=== PATIENT | female | born 1960 | race Caucasian/White ===

== ENCOUNTER → 2017-08-18 | Outpatient (CLI) | payer OTHER ==
[~2017-08-18] MED LIST: ALPR.25 PO; ASPI325 PO; CEPH500 PO; CHOL10002; CIPR500 PO; CITA20 PO; CRANBERRY; CYCL10 PO; DEPRESSION MED; Flomax0.4 MG PO; GABA100 PO; GLIP5 PO; GLYB2.5 PO; HYDACE5325 PO; HYDMOR2 PO; HYDR1TAB94 PO; INSULANPEN SC; Iron Supplemen325 MG; KRILL OIL500 MG PO; LEVO750 PO; LISI20 PO; LISI5 PO; METF500 PO; METF500C PO; NITR100CA PO; Norco 5-325 Ta1 EACH PO; OMEGA-3; OMEP20ER PO; ROPI1 PO; RXHYD5325 PO; RXHYDMOR2 PO; RXPROM25 PO; SITA100T2 PO; [UNRECOGNIZED DRUG - OTHER] SC
[2017-08-18 14:12] LABS: Protein, Urine Quantitative 12.4 mg/dL (0.0-11.9)
[2017-08-18 14:14] LABS: Microalbumin, Urine Quant. 25.7 mg/L (0.000-20.000)
== END ==
LOC: LAB SHORT 08:26
PROVIDERS: Internal Medicine Nephrology
DX: N18.2 Chronic kidney disease, stage 2 (mild) (principal); D63.1 Anemia in chronic kidney disease
CPT/HCPCS: 81050; 82043; 84156

== ENCOUNTER 2017-11-25 22:27 | Emergency (ER) | payer OTHER ==
[~2017-11-25] VITALS: Ht 160 cm; Wt 117.9 kg
[~2017-11-25 22:27] MED LIST changes: -NITR100CA PO
[2017-11-25 23:10] LABS: BASOPHILS ABSOLUTE AUTO 0.06 K/mm3 (0.00-0.23); BASOPHILS PERCENT AUTO 1 % (0-2); EOSINOPHILS ABSOLUTE AUTO 0.14 K/mm3 (0.00-0.68); EOSINOPHILS PERCENT AUTO 1 % (0-6); Hematocrit 42.9 % (33.0-51.0); Hemoglobin 14.5 g/dL (11.5-16.0); IMMATURE GRAN ABSOLUTE AUTO 0.05 K/mm3 (0.00-0.10); IMMATURE GRAN PERCENT AUTO 1 % (0-1); LYMPHOCYTES ABSOLUTE AUTO 2.39 K/mm3 (0.84-5.20); LYMPHOCYTES PERCENT AUTO 24 % (21-46); MONOCYTES ABSOLUTE AUTO 0.63 K/mm3 (0.16-1.47); MONOCYTES PERCENT AUTO 6 % (4-13); Mean Corpuscular HGB 30.3 pg (26.0-34.0); Mean Corpuscular HGB Conc 33.8 g/dL (31.5-36.5); Mean Corpuscular Volume 90 fL (80-100); Mean Platelet Volume 10.2 fL (9.1-12.4); NEUTROPHILS ABSOLUTE AUTO 6.64 K/mm3 (1.96-9.15); NEUTROPHILS PERCENT AUTO 67 % (41-73); Platelet Count 226 K/mm3 (150-400); RDW Coefficient Variation 12.5 % (11.7-14.2); RDW Standard Deviation 40.9 fL (35.1-46.3); Red Blood Cell Count 4.79 M/mm3 (3.80-5.20); White Blood Cell Count 9.91 K/mm3 (4.00-11.30)
[2017-11-25 23:24] LABS: International Normalized Ratio 1.04; Prothrombin Time Results 10.8 Sec (9.7-11.5)
[2017-11-25 23:28] LABS: Alanine Aminotransfer (ALT/SGP 37 U/L (12-78); Albumin, Blood 3.4 g/dL (3.4-5.0); Albumin/Globulin Ratio 0.9 (0.8-1.8); Alk Phos 85 U/L (50-136); Anion Gap 9 mmol/L (6-16); Aspartate Aminotrans (AST/SGOT 37 U/L (12-37); Bilirubin, Total 0.4 mg/dL (0.1-1.0); Blood Urea Nitrogen 14 mg/dL (8-24); Bun/Creatinine Ratio 23.2 (12.0-20.0); CO2, Blood 24 mmol/L (21-32); Calcium, Blood 8.6 mg/dL (8.5-10.1); Chloride, Blood 106 mmol/L (98-108); Globulin, Blood 3.8 g/dL (2.2-4.0); Glomerular Filtration Rate >60 (60-); Glucose, Blood 260 mg/dL (70-99); Potassium, Blood 3.7 mmol/L (3.5-5.5); Sodium, Blood 139 mmol/L (136-145); Total Protein, Blood 7.2 g/dL (6.4-8.2)
[2017-11-25 23:48] LABS: Source, Urine Clean Catch
[2017-11-25 23:55] LABS: Bilirubin, Urine Neg (Neg); Blood, Urine 1+ (Neg); Glucose Qualitative, Urine 4+ (Neg); Ketones, Urine Neg (Neg); Leukocyte Esterase, Urine 2+ (Neg); Nitrite, Urine Pos (Neg); Protein, Urine 3+ (Neg); Specific Gravity, Urine 1.025 (1.003-1.022); Urobilinogen, Urine NORM (Normal)
[2017-11-26 00:06] LABS: Appearance, Urine Hazy (Clear); Color, Urine Yellow (P-Yellow)
[2017-11-26 00:07] LABS: Bacteria Many /hpf; Calcium Oxalate Crystals Mod /hpf; Squamous Epithelial Cells Few /hpf (Few); White Blood Cells, Urine 50-100 /hpf (0-5)
[2017-11-26] MEDS ORDERED: NITR100CA PO (00:30)
== END 2017-11-26 00:49 | disposition home or self-care (01) ==
LOC: ER 22:27
PROVIDERS: Emergency Medicine
DX: N39.0 Urinary tract infection, site not specified (principal); Z88.5 Allergy status to narcotic agent; Z88.2 Allergy status to sulfonamides; Z87.442 Personal history of urinary calculi; Z88.1 Allergy status to other antibiotic agents; Z88.8 Allergy status to other drugs, medicaments and biological substances; Z88.0 Allergy status to penicillin; Z79.899 Other long term (current) drug therapy; Z79.4 Long term (current) use of insulin; E11.9 Type 2 diabetes mellitus without complications; I10 Essential (primary) hypertension
CPT/HCPCS: 36415; 71046; 80053; 81001; 82947; 85025; 85610; 85730; 87077; 87086; 87186; 93005; 93010; 99283

== ENCOUNTER → 2018-09-29 | Outpatient (CLI) | payer OTHER ==
[~2018-09-29] MED LIST changes: +NITR100CA PO
[2018-10-01 15:07] LABS: HPV 16 Negative (Negative); HPV 18 Negative (Negative); HPV OTHER HR TYPES Negative (Negative)
== END | disposition home or self-care (01) ==
LOC: LAB 18:37 → LAB SHORT 18:37
PROVIDERS: Nurse Practitioner Family
DX: Z00.00 Encounter for general adult medical examination without abnormal findings (principal)
CPT/HCPCS: 87624; G0123

== ENCOUNTER 2019-03-26 14:31 | Emergency (ER) | payer OTHER ==
[~2019-03-26] VITALS: Ht 160 cm; Wt 129.3 kg
[2019-03-26] MEDS ORDERED: Humalog Mi100 UNIT/4 (15:07)
[2019-03-26] MEDS ORDERED: BASAGLAR K100 UNIT/1 SC (15:07)
[2019-03-26 15:22] LABS: BASOPHILS ABSOLUTE AUTO 0.04 K/mm3 (0.00-0.23); BASOPHILS PERCENT AUTO 1 % (0-2); EOSINOPHILS ABSOLUTE AUTO 0.25 K/mm3 (0.00-0.68); EOSINOPHILS PERCENT AUTO 3 % (0-6); Hematocrit 41.2 % (33.0-51.0); Hemoglobin 13.5 g/dL (11.5-16.0); IMMATURE GRAN ABSOLUTE AUTO 0.03 K/mm3 (0.00-0.10); IMMATURE GRAN PERCENT AUTO 0 % (0-1); LYMPHOCYTES ABSOLUTE AUTO 1.99 K/mm3 (0.84-5.20); LYMPHOCYTES PERCENT AUTO 24 % (21-46); MONOCYTES ABSOLUTE AUTO 0.65 K/mm3 (0.16-1.47); MONOCYTES PERCENT AUTO 8 % (4-13); Mean Corpuscular HGB 29.5 pg (26.0-34.0); Mean Corpuscular HGB Conc 32.8 g/dL (31.5-36.5); Mean Corpuscular Volume 90 fL (80-100); Mean Platelet Volume 10.6 fL (9.1-12.4); NEUTROPHILS ABSOLUTE AUTO 5.47 K/mm3 (1.96-9.15); NEUTROPHILS PERCENT AUTO 65 % (41-73); Platelet Count 204 K/mm3 (150-400); RDW Coefficient Variation 12.6 % (11.7-14.2); RDW Standard Deviation 41.5 fL (35.1-46.3); Red Blood Cell Count 4.57 M/mm3 (3.80-5.20); White Blood Cell Count 8.43 K/mm3 (4.00-11.30)
[2019-03-26 15:23] LABS: Bicarbonate Venous 23.7 mmol/L (24.0-30.0); PO2 Venous 138 mmHg (38-42)
[2019-03-26 15:51] LABS: Alanine Aminotransfer (ALT/SGP 38 U/L (12-78); Albumin, Blood 3.4 g/dL (3.4-5.0); Albumin/Globulin Ratio 0.9 (0.8-1.8); Alk Phos 166 U/L (50-136); Anion Gap 8 mmol/L (6-16); Aspartate Aminotrans (AST/SGOT 28 U/L (12-37); Bilirubin, Total 0.5 mg/dL (0.1-1.0); Blood Urea Nitrogen 23 mg/dL (8-24); Bun/Creatinine Ratio 33.8 (12.0-20.0); CO2, Blood 24 mmol/L (21-32); Calcium, Blood 8.4 mg/dL (8.5-10.1); Chloride, Blood 106 mmol/L (98-108); Creatinine, Blood 0.68 mg/dL (0.40-1.00); Globulin, Blood 3.6 g/dL (2.2-4.0); Glomerular Filtration Rate >60 (60-); Glucose, Blood 374 mg/dL (70-99); Potassium, Blood 4.3 mmol/L (3.5-5.5); Sodium, Blood 138 mmol/L (136-145); Troponin I <0.015 ng/mL (0.000-0.040)
[2019-03-26 15:58] LABS: Beta-hydroxybutyrate 1.8 mg/dL (0.2-2.8)
[2019-03-26 16:25] LABS: Source, Urine Clean Catch
[2019-03-26 16:33] LABS: Bilirubin, Urine Neg (Neg); Blood, Urine 1+ (Neg); Glucose Qualitative, Urine 4+ (Neg); Ketones, Urine Neg (Neg); Leukocyte Esterase, Urine Neg (Neg); Nitrite, Urine Neg (Neg); Protein, Urine Neg (Neg); Specific Gravity, Urine 1.015 (1.003-1.022); Urobilinogen, Urine NORM (Normal)
[2019-03-26 16:45] LABS: Appearance, Urine Clear (Clear); Color, Urine Yellow (P-Yellow)
[2019-03-26 16:47] LABS: Bacteria Few /hpf; Squamous Epithelial Cells Few /hpf (Few); White Blood Cells, Urine 0-2 /hpf (0-5)
[2019-03-26] MEDS ORDERED: Norco 5-325 Ta1 EACH PO (17:51)
== END 2019-03-26 19:06 | disposition home or self-care (01) ==
LOC: ER 14:31
PROVIDERS: Physician Assistant
DX: S39.012A Strain of muscle, fascia and tendon of lower back, initial encounter (principal); N20.0 Calculus of kidney; I10 Essential (primary) hypertension; E11.65 Type 2 diabetes mellitus with hyperglycemia; Z87.442 Personal history of urinary calculi; Z88.5 Allergy status to narcotic agent; Z88.1 Allergy status to other antibiotic agents; Z79.899 Other long term (current) drug therapy; Z79.4 Long term (current) use of insulin; X58.XXXA Exposure to other specified factors, initial encounter
CPT/HCPCS: 36415; 71046; 74176; 80053; 81001; 82010; 82803; 82947; 83880; 84484; 85025; 93005; 93010; 96361; 96374; 96375; 99284-25; J1885; J3010; J7030

== ENCOUNTER 2019-09-14 16:16 | Emergency (ER) | payer OTHER ==
[~2019-09-14] VITALS: Ht 160 cm; Wt 127.0 kg
[~2019-09-14 16:16] MED LIST changes: +BASAGLAR K100 UNIT/1 SC; +Humalog Mi100 UNIT/4
[2019-09-14 18:35] LABS: Source, Urine Catheter
[2019-09-14 18:41] LABS: Bilirubin, Urine Neg (Neg); Blood, Urine 1+ (Neg); Glucose Qualitative, Urine 4+ (Neg); Ketones, Urine Neg (Neg); Leukocyte Esterase, Urine Neg (Neg); Nitrite, Urine Neg (Neg); Protein, Urine Neg (Neg); Urobilinogen, Urine NORM (Normal)
[2019-09-14 18:44] LABS: BASOPHILS ABSOLUTE AUTO 0.07 K/mm3 (0.00-0.23); BASOPHILS PERCENT AUTO 1 % (0-2); EOSINOPHILS ABSOLUTE AUTO 0.21 K/mm3 (0.00-0.68); EOSINOPHILS PERCENT AUTO 2 % (0-6); Hematocrit 38.7 % (33.0-51.0); Hemoglobin 12.8 g/dL (11.5-16.0); IMMATURE GRAN ABSOLUTE AUTO 0.11 K/mm3 (0.00-0.10); IMMATURE GRAN PERCENT AUTO 1 % (0-1); LYMPHOCYTES ABSOLUTE AUTO 2.59 K/mm3 (0.84-5.20); LYMPHOCYTES PERCENT AUTO 22 % (21-46); MONOCYTES ABSOLUTE AUTO 0.77 K/mm3 (0.16-1.47); MONOCYTES PERCENT AUTO 6 % (4-13); Mean Corpuscular HGB 29.8 pg (26.0-34.0); Mean Corpuscular HGB Conc 33.1 g/dL (31.5-36.5); Mean Corpuscular Volume 90 fL (80-100); Mean Platelet Volume 10.3 fL (9.1-12.4); NEUTROPHILS PERCENT AUTO 69 % (41-73); Platelet Count 244 K/mm3 (150-400); RDW Coefficient Variation 12.9 % (11.7-14.2); RDW Standard Deviation 42.5 fL (35.1-46.3); Red Blood Cell Count 4.29 M/mm3 (3.80-5.20); White Blood Cell Count 11.95 K/mm3 (4.00-11.30)
[2019-09-14 18:47] LABS: Color, Urine Yellow (P-Yellow)
[2019-09-14 18:48] LABS: Appearance, Urine Clear (Clear); Bacteria Rare /hpf; Squamous Epithelial Cells Few /hpf (Few); White Blood Cells, Urine 0-2 /hpf (0-5)
[2019-09-14] MEDS ORDERED: ESCI10 (18:49)
[2019-09-14] MEDS ORDERED: AMLODIPINE-OLM1 EAC2 (18:49)
[2019-09-14] MEDS ORDERED: KRILL OIL500 MG (18:49)
[2019-09-14] MEDS ORDERED: LISI5 PO (18:49)
[2019-09-14 19:20] LABS: Alanine Aminotransfer (ALT/SGP 29 U/L (12-78); Albumin, Blood 3.1 g/dL (3.4-5.0); Albumin/Globulin Ratio 0.8 (0.8-1.8); Alk Phos 106 U/L (50-136); Anion Gap 6 mmol/L (6-16); Aspartate Aminotrans (AST/SGOT 22 U/L (12-37); Bilirubin, Total 0.4 mg/dL (0.1-1.0); Blood Urea Nitrogen 19 mg/dL (8-24); CO2, Blood 25 mmol/L (21-32); Calcium, Blood 8.8 mg/dL (8.5-10.1); Chloride, Blood 106 mmol/L (98-108); Creatinine, Blood 0.61 mg/dL (0.40-1.00); Glomerular Filtration Rate >60 (60-); Glucose, Blood 277 mg/dL (70-99); Potassium, Blood 3.9 mmol/L (3.5-5.5); Sodium, Blood 137 mmol/L (136-145); Total Protein, Blood 7.1 g/dL (6.4-8.2)
[2019-09-14] MEDS ORDERED: Ultram50 MG PO (19:38)
== END 2019-09-14 20:55 | disposition home or self-care (01) ==
LOC: ER 16:16
PROVIDERS: Emergency Medicine
DX: M54.9 Dorsalgia, unspecified (principal); E11.9 Type 2 diabetes mellitus without complications; K21.9 Gastro-esophageal reflux disease without esophagitis; I10 Essential (primary) hypertension; F32.9 Major depressive disorder, single episode, unspecified; E78.5 Hyperlipidemia, unspecified
CPT/HCPCS: 36415; 71046; 80053; 81001; 85025; 96374; 99283-25; J1170; P9612

== ENCOUNTER 2019-09-17 16:20 | Emergency (ER) | payer OTHER ==
[~2019-09-17] VITALS: Ht 160 cm; Wt 127.0 kg
[~2019-09-17 16:20] MED LIST changes: +AMLODIPINE-OLM1 EAC2; +ESCI10; +KRILL OIL500 MG; +Ultram50 MG PO
[2019-09-17] MEDS ORDERED: ATOR20 PO (16:59)
[2019-09-17 17:22] LABS: BASOPHILS ABSOLUTE AUTO 0.05 K/mm3 (0.00-0.23); BASOPHILS PERCENT AUTO 1 % (0-2); EOSINOPHILS PERCENT AUTO 2 % (0-6); Hematocrit 41.7 % (33.0-51.0); Hemoglobin 13.7 g/dL (11.5-16.0); IMMATURE GRAN ABSOLUTE AUTO 0.04 K/mm3 (0.00-0.10); IMMATURE GRAN PERCENT AUTO 0 % (0-1); LYMPHOCYTES ABSOLUTE AUTO 2.41 K/mm3 (0.84-5.20); LYMPHOCYTES PERCENT AUTO 25 % (21-46); MONOCYTES PERCENT AUTO 6 % (4-13); Mean Corpuscular HGB 29.9 pg (26.0-34.0); Mean Corpuscular HGB Conc 32.9 g/dL (31.5-36.5); Mean Corpuscular Volume 91 fL (80-100); Mean Platelet Volume 10.1 fL (9.1-12.4); NEUTROPHILS ABSOLUTE AUTO 6.23 K/mm3 (1.96-9.15); NEUTROPHILS PERCENT AUTO 65 % (41-73); Platelet Count 242 K/mm3 (150-400); RDW Coefficient Variation 12.8 % (11.7-14.2); RDW Standard Deviation 42.6 fL (35.1-46.3); Red Blood Cell Count 4.58 M/mm3 (3.80-5.20); White Blood Cell Count 9.53 K/mm3 (4.00-11.30)
[2019-09-17 17:49] LABS: Alanine Aminotransfer (ALT/SGP 37 U/L (12-78); Albumin, Blood 3.2 g/dL (3.4-5.0); Albumin/Globulin Ratio 0.8 (0.8-1.8); Alk Phos 108 U/L (50-136); Anion Gap 5 mmol/L (6-16); Aspartate Aminotrans (AST/SGOT 26 U/L (12-37); Bilirubin, Total 0.4 mg/dL (0.1-1.0); Blood Urea Nitrogen 15 mg/dL (8-24); Bun/Creatinine Ratio 26.9 (12.0-20.0); CO2, Blood 26 mmol/L (21-32); Calcium, Blood 8.9 mg/dL (8.5-10.1); Chloride, Blood 108 mmol/L (98-108); Creatinine, Blood 0.56 mg/dL (0.40-1.00); Globulin, Blood 3.9 g/dL (2.2-4.0); Glomerular Filtration Rate >60 (60-); Glucose, Blood 252 mg/dL (70-99); Potassium, Blood 3.9 mmol/L (3.5-5.5); Sodium, Blood 139 mmol/L (136-145); Total Protein, Blood 7.1 g/dL (6.4-8.2)
[2019-09-17 18:16] LABS: Source, Urine Clean Catch
[2019-09-17 18:19] LABS: Bilirubin, Urine Neg (Neg); Blood, Urine 1+ (Neg); Glucose Qualitative, Urine 3+ (Neg); Ketones, Urine Neg (Neg); Leukocyte Esterase, Urine Neg (Neg); Nitrite, Urine Neg (Neg); Protein, Urine Neg (Neg); Specific Gravity, Urine 1.025 (1.003-1.022); Urobilinogen, Urine NORM (Normal)
[2019-09-17 18:33] LABS: Appearance, Urine Hazy (Clear); Color, Urine Yellow (P-Yellow)
[2019-09-17 18:34] LABS: Bacteria Many /hpf; Squamous Epithelial Cells Many /hpf (Few); White Blood Cells, Urine 0-2 /hpf (0-5)
== END 2019-09-17 21:17 | disposition home or self-care (01) ==
LOC: ER 16:20
PROVIDERS: Physician Assistant
DX: R07.89 Other chest pain (principal); R10.9 Unspecified abdominal pain; R10.816 Epigastric abdominal tenderness; R74.8 Abnormal levels of other serum enzymes; E11.9 Type 2 diabetes mellitus without complications; I10 Essential (primary) hypertension; F32.9 Major depressive disorder, single episode, unspecified; K21.9 Gastro-esophageal reflux disease without esophagitis; E78.5 Hyperlipidemia, unspecified; G25.81 Restless legs syndrome; Z79.4 Long term (current) use of insulin; Z79.899 Other long term (current) drug therapy; Z88.5 Allergy status to narcotic agent; Z88.0 Allergy status to penicillin; Z88.2 Allergy status to sulfonamides
CPT/HCPCS: 36415; 74176; 80053; 81001; 83690; 84484; 85025; 87086; 93005; 93010; 99284-25; A9270; J1170; J2405

== ENCOUNTER 2020-04-26 12:10 | Inpatient (IN) | payer OTHER ==
[~2020-04-26] VITALS: Ht 160 cm; Wt 127.0 kg
[~2020-04-26 12:10] MED LIST changes: +ATOR20 PO
[2020-04-26] MEDS ORDERED: AMLODIPINE BESYL5 MG PO (12:34)
[2020-04-26] MEDS ORDERED: Acarbose25 MG PO (12:34)
[2020-04-26] MEDS ORDERED: ATOR40TA PO (12:35)
[2020-04-26] MEDS ORDERED: HUMALOG KW100 UNIT/1 SC ×2 (12:35→20:47)
[2020-04-26] MEDS ORDERED: ROPINIROLE HCL1 MG PO (12:35)
[2020-04-26] MEDS ORDERED: NEURONTIN300 MG PO (12:36)
[2020-04-26] MEDS ORDERED: ESCI20 PO (12:36)
[2020-04-26] MEDS ORDERED: LISI5 PO (12:36)
[2020-04-26 12:44] LABS: BASOPHILS ABSOLUTE AUTO 0.05 K/mm3 (0.00-0.23); BASOPHILS PERCENT AUTO 1 % (0-2); EOSINOPHILS ABSOLUTE AUTO 0.18 K/mm3 (0.00-0.68); EOSINOPHILS PERCENT AUTO 2 % (0-6); Hemoglobin 13.4 g/dL (11.5-16.0); IMMATURE GRAN ABSOLUTE AUTO 0.05 K/mm3 (0.00-0.10); IMMATURE GRAN PERCENT AUTO 1 % (0-1); LYMPHOCYTES ABSOLUTE AUTO 2.24 K/mm3 (0.84-5.20); LYMPHOCYTES PERCENT AUTO 21 % (21-46); MONOCYTES ABSOLUTE AUTO 0.85 K/mm3 (0.16-1.47); MONOCYTES PERCENT AUTO 8 % (4-13); Mean Corpuscular HGB 28.8 pg (26.0-34.0); Mean Corpuscular HGB Conc 31.9 g/dL (31.5-36.5); Mean Corpuscular Volume 90 fL (80-100); Mean Platelet Volume 10.6 fL (9.1-12.4); NEUTROPHILS PERCENT AUTO 69 % (41-73); Platelet Count 231 K/mm3 (150-400); RDW Standard Deviation 42.9 fL (35.1-46.3); Red Blood Cell Count 4.65 M/mm3 (3.80-5.20); White Blood Cell Count 10.87 K/mm3 (4.00-11.30)
[2020-04-26 12:57] LABS: International Normalized Ratio 0.97; Prothrombin Time Results 10.4 Sec (9.7-11.5)
[2020-04-26 12:59] LABS: Alanine Aminotransfer (ALT/SGP 33 U/L (12-78); Albumin, Blood 3.3 g/dL (3.4-5.0); Albumin/Globulin Ratio 0.9 (0.8-1.8); Alk Phos 90 U/L (50-136); Anion Gap 5 mmol/L (6-16); Aspartate Aminotrans (AST/SGOT 29 U/L (12-37); Bilirubin, Total 0.5 mg/dL (0.1-1.0); Blood Urea Nitrogen 16 mg/dL (8-24); Bun/Creatinine Ratio 28.4 (12.0-20.0); CO2, Blood 26 mmol/L (21-32); Calcium, Blood 8.8 mg/dL (8.5-10.1); Chloride, Blood 106 mmol/L (98-108); Creatinine, Blood 0.56 mg/dL (0.40-1.00); Globulin, Blood 3.8 g/dL (2.2-4.0); Glomerular Filtration Rate >60 (60-); Glucose, Blood 310 mg/dL (70-99); Potassium, Blood 4.2 mmol/L (3.5-5.5); Sodium, Blood 137 mmol/L (136-145); Total Protein, Blood 7.1 g/dL (6.4-8.2); Troponin I <0.015 ng/mL (0.000-0.040)
--- NOTE | 2020-04-26 16:15 | NUR ---
Echocardiogram completed.
[2020-04-26] MEDS ORDERED: ACET325 PO (20:44)
[2020-04-26] MEDS ORDERED: FERSU300 PO (20:45)
--- NOTE | 2020-04-26 22:27 | NUR ---
ASSUMED CARE OF PT @ 1900. PT ADMITTED TO ICU FOR POST PCI CARE. RIGHT RADIAL SITE ACCESS c TR BAND IN PLACE, ALL AIR REMOVED BY DAY SHIFT RN. NO BLEEDING NOTED TO SITE AT THIS TIME. SMALL HEMATOMA PROXIMAL TO TR BAND, AREA MARKED c MARKER TO ASSESS CHANGES. PRESSURE HELD ON SITE FOR 5 MINUTES WITH DECREASE IN HEMATOMA SIZE, AREA SOFT TO PALPATION. TR BAND REMOVED @ 2215, SITE CLEAN, NO BLEEDING FROM INSERTION SITE, CLEAR OP SITE DRESSING APPLIED. ARMBAND REAPPLIED. REINFORCED THE NEED FOR PT TO NOT USE THE RIGHT ARM/ HAND. NO C/O CP OR SOB AT THIS TIME. NO OTHER COMPLAINTS FROM PT. HOME MEDS CONFIRMED WITH DAUGHTER. WILL CONTIUE TO MONITOR RADIAL ACCESS SITE.
--- NOTE | 2020-04-27 00:22 | NUR ---
PTS O2 SATS DECREASED TO LOW 80'S WHILE SLEEPING. PT DENIES WEARING OXYGEN AT HOME OR HAVING SLEEP APNEA. PLACED ON 2LPM O2 VIA NC.
--- NOTE | 2020-04-27 05:52 | NUR ---
SHIFT SUMMARY PT REMAINED W/O CP OR SOB T/O THE MORNING. RADIAL ACCESS SITE C/D/I, HEMATOMA DECREASED IN SIZE, SOFT TO TOUCH. NO COMPLAINTS OR CONCERNS AT THIS TIME. UP WITH STANDBY ASSIST TO THE BATHROOM. TURNING/ MOVING SELF IN BED. VSS. PLACED ON 2LPM O2 DUE TO SPO2 DECREASING TO MID 80'S WHILE SLEEPING. SNORING NOTED. REPORT TO ONCOMING NURSE.
[2020-04-27 07:59] LABS: BASOPHILS ABSOLUTE AUTO 0.05 K/mm3 (0.00-0.23); BASOPHILS PERCENT AUTO 1 % (0-2); EOSINOPHILS ABSOLUTE AUTO 0.22 K/mm3 (0.00-0.68); EOSINOPHILS PERCENT AUTO 2 % (0-6); Hematocrit 38.5 % (33.0-51.0); Hemoglobin 12.1 g/dL (11.5-16.0); IMMATURE GRAN ABSOLUTE AUTO 0.04 K/mm3 (0.00-0.10); IMMATURE GRAN PERCENT AUTO 0 % (0-1); LYMPHOCYTES ABSOLUTE AUTO 1.71 K/mm3 (0.84-5.20); LYMPHOCYTES PERCENT AUTO 17 % (21-46); MONOCYTES ABSOLUTE AUTO 0.66 K/mm3 (0.16-1.47); MONOCYTES PERCENT AUTO 7 % (4-13); Mean Corpuscular HGB Conc 31.4 g/dL (31.5-36.5); Mean Corpuscular Volume 92 fL (80-100); Mean Platelet Volume 10.5 fL (9.1-12.4); NEUTROPHILS ABSOLUTE AUTO 7.26 K/mm3 (1.96-9.15); NEUTROPHILS PERCENT AUTO 73 % (41-73); Platelet Count 194 K/mm3 (150-400); RDW Standard Deviation 43.5 fL (35.1-46.3); Red Blood Cell Count 4.17 M/mm3 (3.80-5.20); White Blood Cell Count 9.94 K/mm3 (4.00-11.30)
--- NOTE | 2020-04-27 08:00 | NUR ---
ASSUMED CARE RECEIVE REPORT FROM JEFF FIELDS. PT IS SITTING UP IN BED, ALERT AND ORIENTED X 4. SHE DENIES CP, SOB (AT REST), AND NAUSEA. HER RIGHT RADIAL SITE IS NONTENDER, AND HAS NO SIGNS OF HEMATOMA FORMATION. SHE HAS A STRONG PULSE, WITH ADEQUATE CAP REFILL (<3s), NO NUMBNESS, TINGLING, OR PAIN IN HER RIGHT HAND. SHE IS IN SINUS RHYTHM WITH LITTLE TO NO ECTOPY. STABLE BP AND O2 SATS (ON ROOM AIR.) BED IS LOW AND LOCKED. HER IVs ARE SALINE LOCKED. HER CALL LIGHT IS WITHIN REACH.
[2020-04-27 08:30] LABS: Alanine Aminotransfer (ALT/SGP 33 U/L (12-78); Albumin, Blood 2.8 g/dL (3.4-5.0); Albumin/Globulin Ratio 0.8 (0.8-1.8); Alk Phos 66 U/L (50-136); Anion Gap 4 mmol/L (6-16); Aspartate Aminotrans (AST/SGOT 38 U/L (12-37); Bilirubin, Total 0.5 mg/dL (0.1-1.0); Blood Urea Nitrogen 11 mg/dL (8-24); Bun/Creatinine Ratio 17.5 (12.0-20.0); CHOL/HDL RATIO 2.6; CO2, Blood 28 mmol/L (21-32); Calcium, Blood 8.1 mg/dL (8.5-10.1); Chloride, Blood 110 mmol/L (98-108); Cholesterol 74 mg/dL (50-200); Creatinine, Blood 0.63 mg/dL (0.40-1.00); Globulin, Blood 3.6 g/dL (2.2-4.0); Glomerular Filtration Rate >60 (60-); Glucose, Blood 216 mg/dL (70-99); HDL Cholesterol 29 mg/dL (>39); LDL/HDL RATIO 0.7; Low Density Lipoprotein Chol 19 mg/dL (0-110); Potassium, Blood 4.1 mmol/L (3.5-5.5); Sodium, Blood 142 mmol/L (136-145); Total Protein, Blood 6.4 g/dL (6.4-8.2); Triglycerides 128 mg/dL (30-160); Very Low Density Lipoprot Chol 25 mg/dL (6-32)
[2020-04-27] MEDS ORDERED: ASPI81CH PO (11:36)
[2020-04-27] MEDS ORDERED: TICA90TA PO (11:38)
[2020-04-27] MEDS ORDERED: METO25ER PO (11:39)
== END 2020-04-27 13:30 | disposition home or self-care (01) | DRG 247 ==
LOC: ER 12:10 → ICUE 12:25 → ICUW 12:25 → ICUE 13:07
PROVIDERS: Emergency Medicine; ADMIT Internal Medicine Interventional Cardiology
PROC: 4A023N7 Measurement of Cardiac Sampling and Pressure, Left Heart, Percutaneous Approach (ICD-10-PCS; principal; 2020-04-26)
PROC: 027236Z Dilation of Coronary Artery, Three Arteries with Three Drug-eluting Intraluminal Devices, Percutaneous Approach (ICD-10-PCS; 2020-04-26)
PROC: B2111ZZ Fluoroscopy of Multiple Coronary Arteries using Low Osmolar Contrast (ICD-10-PCS; 2020-04-26)
DX: I21.11 ST elevation (STEMI) myocardial infarction involving right coronary artery (principal); Z68.42 Body mass index [BMI] 45.0-49.9, adult; I10 Essential (primary) hypertension; K21.9 Gastro-esophageal reflux disease without esophagitis; G25.81 Restless legs syndrome; E11.9 Type 2 diabetes mellitus without complications; Z79.4 Long term (current) use of insulin; E78.5 Hyperlipidemia, unspecified; E66.01 Morbid (severe) obesity due to excess calories
CPT/HCPCS: 36415; 76937; 80053; 80061; 82947; 83735; 84484; 85025; 85347; 85610; 85730; 93005; 93010; 93458; 99152; 99153; A9270-GY; C1725; C1769; C1874; C1887; C1894; C8929; C9600; C9601; C9606; G0008; J1644; J1650; J2250; J3010; J7030; J7040; J7050; Q2038; Q9957; Q9967

== ENCOUNTER 2020-08-18 21:53 | Inpatient (IN) | payer OTHER ==
[~2020-08-18] VITALS: Ht 160 cm; Wt 121.1 kg
[~2020-08-18 21:53] MED LIST changes: +ACET325 PO; +Acarbose25 MG PO; -BASAGLAR K100 UNIT/1 SC; +FERSU300 PO
[2020-08-18 22:29] LABS: BASOPHILS ABSOLUTE AUTO 0.07 K/mm3 (0.00-0.23); BASOPHILS PERCENT AUTO 1 % (0-2); EOSINOPHILS ABSOLUTE AUTO 0.23 K/mm3 (0.00-0.68); EOSINOPHILS PERCENT AUTO 2 % (0-6); Hematocrit 24.1 % (33.0-51.0); Hemoglobin 7.1 g/dL (11.5-16.0); IMMATURE GRAN ABSOLUTE AUTO 0.15 K/mm3 (0.00-0.10); IMMATURE GRAN PERCENT AUTO 1 % (0-1); LYMPHOCYTES ABSOLUTE AUTO 1.61 K/mm3 (0.84-5.20); LYMPHOCYTES PERCENT AUTO 11 % (21-46); MONOCYTES ABSOLUTE AUTO 1.01 K/mm3 (0.16-1.47); MONOCYTES PERCENT AUTO 7 % (4-13); Mean Corpuscular HGB Conc 29.5 g/dL (31.5-36.5); Mean Corpuscular Volume 85 fL (80-100); Mean Platelet Volume 10.2 fL (9.1-12.4); NEUTROPHILS ABSOLUTE AUTO 11.87 K/mm3 (1.96-9.15); NEUTROPHILS PERCENT AUTO 79 % (41-73); Platelet Count 380 K/mm3 (150-400); RDW Standard Deviation 46.9 fL (35.1-46.3); Red Blood Cell Count 2.84 M/mm3 (3.80-5.20); White Blood Cell Count 14.94 K/mm3 (4.00-11.30)
[2020-08-18 22:51] LABS: Alanine Aminotransfer (ALT/SGP 13 U/L (12-78); Albumin, Blood 2.7 g/dL (3.4-5.0); Albumin/Globulin Ratio 0.6 (0.8-1.8); Alk Phos 79 U/L (50-136); Anion Gap 7 mmol/L (6-16); Aspartate Aminotrans (AST/SGOT 24 U/L (12-37); Bilirubin, Total 0.4 mg/dL (0.1-1.0); Blood Urea Nitrogen 14 mg/dL (8-24); Bun/Creatinine Ratio 20.7 (12.0-20.0); CO2, Blood 28 mmol/L (21-32); Calcium, Blood 8.9 mg/dL (8.5-10.1); Chloride, Blood 101 mmol/L (98-108); Creatinine, Blood 0.68 mg/dL (0.40-1.00); Globulin, Blood 4.4 g/dL (2.2-4.0); Glomerular Filtration Rate >60 (60-); Glucose, Blood 128 mg/dL (70-99); Potassium, Blood 3.8 mmol/L (3.5-5.5); Sodium, Blood 136 mmol/L (136-145); Total Protein, Blood 7.1 g/dL (6.4-8.2)
[2020-08-18 23:48] LABS: Source, Urine Clean Catch
[2020-08-18 23:52] LABS: Bilirubin, Urine Neg (Neg); Blood, Urine 1+ (Neg); Glucose Qualitative, Urine Neg (Neg); Ketones, Urine Neg (Neg); Leukocyte Esterase, Urine 3+ (Neg); Nitrite, Urine Pos (Neg); Protein, Urine 2+ (Neg); Urobilinogen, Urine NORM (Normal); pH, Urine 6.5 (5.0-8.0)
[2020-08-18 23:57] LABS: Appearance, Urine Hazy (Clear); Color, Urine Yellow (P-Yellow)
[2020-08-19] LABS: Bacteria Many /hpf; Red Blood Cells, Urine Rare /hpf (0-2); Squamous Epithelial Cells Few /hpf (Few); White Blood Cells, Urine 25-50 /hpf (0-5)
[2020-08-19 00:35] LABS: Troponin I <0.015 ng/mL (0.000-0.040)
[2020-08-19 04:07] LABS: Percent Saturation 7.2 % (15.0-50.0)
--- NOTE | 2020-08-19 07:18 | NUR ---
PT ARRIVED TO UNIT FROM ED @ APPROX 0640. PT AMBULATED HERSELF TO BED. VITALS WERE TAKEN AT ADMISSION AND THEY WERE STABLE. PT WAS ORIENTED TO ROOM AND CALL SYSTEM. REPORT TO BE GIVEN TO UNCOMING NURSE.
[2020-08-19 09:57] LABS: BASOPHILS ABSOLUTE AUTO 0.05 K/mm3 (0.00-0.23); BASOPHILS PERCENT AUTO 0 % (0-2); EOSINOPHILS ABSOLUTE AUTO 0.21 K/mm3 (0.00-0.68); EOSINOPHILS PERCENT AUTO 2 % (0-6); Hematocrit 25.2 % (33.0-51.0); Hemoglobin 7.4 g/dL (11.5-16.0); IMMATURE GRAN ABSOLUTE AUTO 0.11 K/mm3 (0.00-0.10); IMMATURE GRAN PERCENT AUTO 1 % (0-1); LYMPHOCYTES ABSOLUTE AUTO 1.59 K/mm3 (0.84-5.20); LYMPHOCYTES PERCENT AUTO 12 % (21-46); MONOCYTES ABSOLUTE AUTO 1.16 K/mm3 (0.16-1.47); MONOCYTES PERCENT AUTO 8 % (4-13); Mean Corpuscular HGB 25.1 pg (26.0-34.0); Mean Corpuscular HGB Conc 29.4 g/dL (31.5-36.5); Mean Corpuscular Volume 85 fL (80-100); Mean Platelet Volume 9.9 fL (9.1-12.4); NEUTROPHILS ABSOLUTE AUTO 10.67 K/mm3 (1.96-9.15); NEUTROPHILS PERCENT AUTO 77 % (41-73); Platelet Count 342 K/mm3 (150-400); RDW Coefficient Variation 14.9 % (11.7-14.2); RDW Standard Deviation 46.2 fL (35.1-46.3); Red Blood Cell Count 2.95 M/mm3 (3.80-5.20); White Blood Cell Count 13.79 K/mm3 (4.00-11.30)
[2020-08-19 10:14] LABS: Alanine Aminotransfer (ALT/SGP 13 U/L (12-78); Albumin, Blood 2.5 g/dL (3.4-5.0); Albumin/Globulin Ratio 0.6 (0.8-1.8); Alk Phos 65 U/L (50-136); Anion Gap 7 mmol/L (6-16); Aspartate Aminotrans (AST/SGOT 21 U/L (12-37); Bilirubin, Total 0.8 mg/dL (0.1-1.0); Blood Urea Nitrogen 12 mg/dL (8-24); Bun/Creatinine Ratio 15.7 (12.0-20.0); CO2, Blood 27 mmol/L (21-32); Calcium, Blood 8.4 mg/dL (8.5-10.1); Chloride, Blood 102 mmol/L (98-108); Creatinine, Blood 0.76 mg/dL (0.40-1.00); Globulin, Blood 4.1 g/dL (2.2-4.0); Glomerular Filtration Rate >60 (60-); Glucose, Blood 133 mg/dL (70-99); Potassium, Blood 3.8 mmol/L (3.5-5.5); Sodium, Blood 136 mmol/L (136-145); Total Protein, Blood 6.6 g/dL (6.4-8.2)
[2020-08-19 10:42] LABS: Cancer Antigen 19-9 186.4 U/mL (2.0-37.0)
[2020-08-19 10:49] LABS: Cancer Antigen 125 94.5 U/mL (1.5-35.0)
--- NOTE | 2020-08-19 18:50 | NUR ---
SHIFT SUMMARY- PT IS A/O, PLESANT AND COOPERATIVE. HER DIET WAS ADVANCED TO ADA DIET. SHE RECIEVED BLOOD IN THE ER LAST NIGHT. SHE RECIEVED AN IRON TRANSFUSION TODAY. SHE REPORTS FEELING MUCH BETTER. ONCOLOGY WAS CONSULTED, DR. THOMAS IS UNABLE TO SEE THE PT UNTIL FRIDAY. IF SHE IS DISCHARGED BEFORE THEN HE WILL SEE HER ON AN OUTPT BASIS. SHE IS EATING AND DRINKING WELL. HER BLOOD SUGAR HAS REMAINED STABLE. HER BED IS IN THE LOW POSITION AND CALL LIGHT IS WITHIN REACH.
[2020-08-20 04:51] LABS: BASOPHILS ABSOLUTE AUTO 0.07 K/mm3 (0.00-0.23); BASOPHILS PERCENT AUTO 1 % (0-2); EOSINOPHILS ABSOLUTE AUTO 0.25 K/mm3 (0.00-0.68); EOSINOPHILS PERCENT AUTO 2 % (0-6); Hematocrit 26.4 % (33.0-51.0); Hemoglobin 7.8 g/dL (11.5-16.0); IMMATURE GRAN ABSOLUTE AUTO 0.12 K/mm3 (0.00-0.10); IMMATURE GRAN PERCENT AUTO 1 % (0-1); LYMPHOCYTES ABSOLUTE AUTO 1.67 K/mm3 (0.84-5.20); LYMPHOCYTES PERCENT AUTO 13 % (21-46); MONOCYTES ABSOLUTE AUTO 1.02 K/mm3 (0.16-1.47); MONOCYTES PERCENT AUTO 8 % (4-13); Mean Corpuscular HGB 25.4 pg (26.0-34.0); Mean Corpuscular HGB Conc 29.5 g/dL (31.5-36.5); Mean Corpuscular Volume 86 fL (80-100); Mean Platelet Volume 10.3 fL (9.1-12.4); NEUTROPHILS ABSOLUTE AUTO 9.53 K/mm3 (1.96-9.15); NEUTROPHILS PERCENT AUTO 75 % (41-73); Platelet Count 365 K/mm3 (150-400); RDW Coefficient Variation 15.5 % (11.7-14.2); RDW Standard Deviation 48.8 fL (35.1-46.3); Red Blood Cell Count 3.07 M/mm3 (3.80-5.20); White Blood Cell Count 12.66 K/mm3 (4.00-11.30)
--- NOTE | 2020-08-20 04:56 | NUR ---
SHIFT SUMMARY NO ACUTE CHANGES T/O SHIFT, A&Ox4, CALM AND COOPERATIVE WITH CARE. PT TREATED FOR PAIN X1 THIS EVENING, PAIN LOCATED IN LOWER BACK. PT WAS ABLE TO SLEEP WELL T/O SHIFT. SCD'S WERE PLACED ON PT AT BEGINNNING OF SHIFT BUT PT ASKED FOR THEM TO REMOVED @ APPROX 0115. DOUBLE SENOKOT ORDER NOTED. ONLY ONE ADMINISTERED THIS EVENING, WILL INFORM AM NURSE TO DISCUSS WITH ONCOMING PROVIDER WHICH ORDER THEY WOULD PREFER TO KEEP. DUPLICATE COLACE ORDERS NOTED, ONE DC. PT IS CURRENTLY SLEEPING WITH CALL LIGHT WITHIN REACH AND APPEARS TO BE IN NO DISTRESS.
[2020-08-20] MEDS ORDERED: DOCU100 PO (14:01)
[2020-08-20] MEDS ORDERED: SENN187 PO (14:02)
--- NOTE | 2020-08-20 16:49 | NUR ---
PT DISCHARGED FROM THE UNIT. IV REMOVED. DISCHARGE INSTRUCTIONS REVIEWED. HARD COPY OF PAIN MEDICATION SENT. MEDICATIONS FAXED TO PHARMACY. PT TOOK A SHOWER BEFORE SHE LEFT. SHE LEFT WITH DAUGHTER VIA WHEELCHAIR.
== END 2020-08-20 15:29 | disposition home or self-care (01) | DRG 375 ==
LOC: ER 21:53 → MEDS 21:54 → ERHOLD 21:54 → MEDS 08-19 06:42
PROVIDERS: Emergency Medicine; Internal Medicine; Internal Medicine Hematology & Oncology; ADMIT Internal Medicine
DX: C78.6 Secondary malignant neoplasm of retroperitoneum and peritoneum (principal); K56.7 Ileus, unspecified; R18.0 Malignant ascites; Z68.42 Body mass index [BMI] 45.0-49.9, adult; D63.0 Anemia in neoplastic disease; D50.9 Iron deficiency anemia, unspecified; I25.10 Atherosclerotic heart disease of native coronary artery without angina pectoris; E11.9 Type 2 diabetes mellitus without complications; E66.01 Morbid (severe) obesity due to excess calories; I25.2 Old myocardial infarction; K21.9 Gastro-esophageal reflux disease without esophagitis; G25.81 Restless legs syndrome
CPT/HCPCS: 36415; 36430; 74177; 80053; 81001; 82272; 82728; 82947; 83540; 83550; 83615; 83690; 84484; 85025; 86301; 86304; 86850; 86900; 86901; 86923; 87077; 87086; 87186; 93005; 93010; 96365; 96375; 99285-25; A9270; G0378; J0696; J1170; J2405; J2765; J2916; J3010; J7030; J7050; P9016; Q9967

== ENCOUNTER 2020-09-09 12:51 | Emergency (ER) | payer OTHER ==
[~2020-09-09] VITALS: Ht 167.6 cm; Wt 130.2 kg
[~2020-09-09 12:51] MED LIST changes: +DOCU100 PO; +SENN187 PO
[2020-09-09 13:34] LABS: BASOPHILS ABSOLUTE AUTO 0.06 K/mm3 (0.00-0.23); BASOPHILS PERCENT AUTO 0 % (0-2); EOSINOPHILS ABSOLUTE AUTO 0.05 K/mm3 (0.00-0.68); EOSINOPHILS PERCENT AUTO 0 % (0-6); Hematocrit 29.2 % (33.0-51.0); Hemoglobin 8.5 g/dL (11.5-16.0); IMMATURE GRAN ABSOLUTE AUTO 0.15 K/mm3 (0.00-0.10); IMMATURE GRAN PERCENT AUTO 1 % (0-1); LYMPHOCYTES ABSOLUTE AUTO 1.14 K/mm3 (0.84-5.20); LYMPHOCYTES PERCENT AUTO 6 % (21-46); MONOCYTES ABSOLUTE AUTO 1.38 K/mm3 (0.16-1.47); MONOCYTES PERCENT AUTO 8 % (4-13); Mean Corpuscular HGB 23.5 pg (26.0-34.0); Mean Corpuscular HGB Conc 29.1 g/dL (31.5-36.5); Mean Corpuscular Volume 81 fL (80-100); Mean Platelet Volume 9.8 fL (9.1-12.4); NEUTROPHILS ABSOLUTE AUTO 14.97 K/mm3 (1.96-9.15); NEUTROPHILS PERCENT AUTO 84 % (41-73); Platelet Count 439 K/mm3 (150-400); RDW Coefficient Variation 17.2 % (11.7-14.2); RDW Standard Deviation 51.4 fL (35.1-46.3); Red Blood Cell Count 3.61 M/mm3 (3.80-5.20); White Blood Cell Count 17.75 K/mm3 (4.00-11.30)
[2020-09-09 13:43] LABS: Alanine Aminotransfer (ALT/SGP 13 U/L (12-78); Albumin, Blood 2.2 g/dL (3.4-5.0); Albumin/Globulin Ratio 0.5 (0.8-1.8); Alk Phos 90 U/L (50-136); Anion Gap 9 mmol/L (6-16); Aspartate Aminotrans (AST/SGOT 35 U/L (12-37); Bilirubin, Total 0.5 mg/dL (0.1-1.0); Blood Urea Nitrogen 13 mg/dL (8-24); Bun/Creatinine Ratio 16.2 (12.0-20.0); CO2, Blood 27 mmol/L (21-32); Calcium, Blood 8.7 mg/dL (8.5-10.1); Chloride, Blood 101 mmol/L (98-108); Globulin, Blood 4.5 g/dL (2.2-4.0); Glomerular Filtration Rate >60 (60-); Glucose, Blood 95 mg/dL (70-99); Potassium, Blood 4.7 mmol/L (3.5-5.5); Sodium, Blood 137 mmol/L (136-145); Total Protein, Blood 6.7 g/dL (6.4-8.2)
[2020-09-09 16:13] LABS: Source, Urine Voided
[2020-09-09 16:16] LABS: Appearance, Urine Clear (Clear); Bilirubin, Urine Neg (Neg); Blood, Urine 1+ (Neg); Color, Urine Yellow (P-Yellow); Glucose Qualitative, Urine Neg (Neg); Ketones, Urine 2+ (Neg); Leukocyte Esterase, Urine 1+ (Neg); Nitrite, Urine Neg (Neg); Protein, Urine 1+ (Neg); Urobilinogen, Urine NORM (Normal)
[2020-09-09 16:23] LABS: Bacteria Few /hpf; Red Blood Cells, Urine Not Seen /hpf (0-2); Squamous Epithelial Cells Mod /hpf (Few); White Blood Cells, Urine Not Seen /hpf (0-5)
[2020-09-09] MEDS ORDERED: PHENERGAN25 MG PR (17:00)
[2020-09-09] MEDS ORDERED: MORP15ER PO (17:00)
== END 2020-09-09 17:17 | disposition home or self-care (01) ==
LOC: ER 12:51
PROVIDERS: Emergency Medicine
DX: C79.89 Secondary malignant neoplasm of other specified sites (principal); C22.8 Malignant neoplasm of liver, primary, unspecified as to type; E11.9 Type 2 diabetes mellitus without complications; I10 Essential (primary) hypertension; K21.9 Gastro-esophageal reflux disease without esophagitis; Z79.4 Long term (current) use of insulin; Z88.5 Allergy status to narcotic agent; Z88.2 Allergy status to sulfonamides; Z88.1 Allergy status to other antibiotic agents; Z87.442 Personal history of urinary calculi; Z79.899 Other long term (current) drug therapy
CPT/HCPCS: 36415; 74177; 80053; 81001; 83690; 85025; 87077; 87086; 87186; 93005; 93010; 96374-59; 96375; 99284-25; J1170; J2405; Q9967

== ENCOUNTER → 2020-09-13 | Outpatient (CLI) | payer OTHER ==
[~2020-09-13] MED LIST changes: +AMLODIPINE BESYL5 MG PO; +ATOR40TA PO; +ATROPINE SULFATE2 M5 SL; +AURYXIA210 MG PO; +Acetaminophen325 M1 PO; +Aspir 8181 MG PO; +BASAGLAR K100 UNIT/1 SC; +BISA10S PR; +DEXA4 PO; +DULCOLAX400 MG/5 M PO; +ESCI10 PO; +FENTANYL1 EAC7 TOP; +FUROSEMIDE20 MG PO; +HUMALOG KW100 UNIT/1 SC; +METO25ER PO; +METO5A PO; +MIRALAX17 GM PO; +MORP15ER PO; +MS Contin15 MG PO; +NEURONTIN300 MG PO; +ONDA4 PO; +OXYC10TA19 PO; +PHENERGAN25 MG PR; +POTA8 PO; +ROPINIROLE HCL1 MG PO; +TICA90TA PO; +TRANSDERM-SCOP1 EAC1 TD
[2020-09-13 19:44] LABS: BASOPHILS ABSOLUTE AUTO 0.07 K/mm3 (0.00-0.23); BASOPHILS PERCENT AUTO 0 % (0-2); EOSINOPHILS ABSOLUTE AUTO 0.08 K/mm3 (0.00-0.68); EOSINOPHILS PERCENT AUTO 0 % (0-6); Hemoglobin 8.4 g/dL (11.5-16.0); IMMATURE GRAN ABSOLUTE AUTO 0.19 K/mm3 (0.00-0.10); IMMATURE GRAN PERCENT AUTO 1 % (0-1); LYMPHOCYTES ABSOLUTE AUTO 1.12 K/mm3 (0.84-5.20); LYMPHOCYTES PERCENT AUTO 6 % (21-46); MONOCYTES ABSOLUTE AUTO 1.29 K/mm3 (0.16-1.47); MONOCYTES PERCENT AUTO 7 % (4-13); Mean Corpuscular HGB 23.3 pg (26.0-34.0); Mean Corpuscular Volume 83 fL (80-100); NEUTROPHILS ABSOLUTE AUTO 15.13 K/mm3 (1.96-9.15); NEUTROPHILS PERCENT AUTO 85 % (41-73); Platelet Count 475 K/mm3 (150-400); RDW Coefficient Variation 17.3 % (11.7-14.2); RDW Standard Deviation 53.1 fL (35.1-46.3); Red Blood Cell Count 3.61 M/mm3 (3.80-5.20); White Blood Cell Count 17.88 K/mm3 (4.00-11.30)
[2020-09-13 19:58] LABS: International Normalized Ratio 1.07; Prothrombin Time Results 11.4 Sec (9.7-11.5)
[2020-09-13 20:03] LABS: Albumin, Blood 2.3 g/dL (3.4-5.0); Albumin/Globulin Ratio 0.5 (0.8-1.8); Bilirubin, Total 0.3 mg/dL (0.1-1.0); Bun/Creatinine Ratio 26.7 (12.0-20.0); Calcium, Blood 8.7 mg/dL (8.5-10.1); Creatinine, Blood 1.2 mg/dL (0.40-1.00); Globulin, Blood 4.6 g/dL (2.2-4.0); Phosphorus, Blood 4.3 mg/dL (2.5-4.9); Potassium, Blood 5.2 mmol/L (3.5-5.5); Total Protein, Blood 6.9 g/dL (6.4-8.2)
[2020-09-28 17:10] LABS: ANTI-PS/PT ABS IGG <10 Units (.); ANTI-PS/PT ABS IGM <10 Units (.); DRVVT CONFIRM SECONDS 40.9 sec (.); DRVVT RATIO 1.2 ratio (.); DRVVT SCREEN SECONDS 54.2 sec (.); PROTHROMBIN TIME 10.9 sec (.); THROMBIN TIME 17.4 sec (.)
== END | disposition home or self-care (01) ==
LOC: LAB SHORT 17:51 → PLD 17:51
PROVIDERS: Internal Medicine Hematology & Oncology
DX: I25.10 Atherosclerotic heart disease of native coronary artery without angina pectoris (principal); R91.1 Solitary pulmonary nodule; E04.1 Nontoxic single thyroid nodule; R16.0 Hepatomegaly, not elsewhere classified
CPT/HCPCS: 80053; 84100; 85025; 85610; 85613; 85670; 85730; 86146; 86147; 86148

== ENCOUNTER 2020-09-15 12:11 | Observation (INO) | payer OTHER ==
[~2020-09-15] VITALS: Ht 160 cm; Wt 125.2 kg
[~2020-09-15 12:11] MED LIST changes: -AMLODIPINE BESYL5 MG PO; -ATOR40TA PO; -ATROPINE SULFATE2 M5 SL; -AURYXIA210 MG PO; -Acetaminophen325 M1 PO; -Aspir 8181 MG PO; -BASAGLAR K100 UNIT/1 SC; -BISA10S PR; -DEXA4 PO; -DULCOLAX400 MG/5 M PO; -ESCI10 PO; -FENTANYL1 EAC7 TOP; -FUROSEMIDE20 MG PO; -HUMALOG KW100 UNIT/1 SC; -METO25ER PO; -METO5A PO; -MIRALAX17 GM PO; -MS Contin15 MG PO; -NEURONTIN300 MG PO; -ONDA4 PO; -OXYC10TA19 PO; -POTA8 PO; -ROPINIROLE HCL1 MG PO; -TICA90TA PO; -TRANSDERM-SCOP1 EAC1 TD
[2020-09-15 12:46] LABS: BASOPHILS ABSOLUTE AUTO 0.07 K/mm3 (0.00-0.23); BASOPHILS PERCENT AUTO 1 % (0-2); EOSINOPHILS ABSOLUTE AUTO 0.05 K/mm3 (0.00-0.68); EOSINOPHILS PERCENT AUTO 0 % (0-6); Hematocrit 28.6 % (33.0-51.0); Hemoglobin 8.3 g/dL (11.5-16.0); IMMATURE GRAN ABSOLUTE AUTO 0.11 K/mm3 (0.00-0.10); IMMATURE GRAN PERCENT AUTO 1 % (0-1); LYMPHOCYTES ABSOLUTE AUTO 0.81 K/mm3 (0.84-5.20); LYMPHOCYTES PERCENT AUTO 6 % (21-46); MONOCYTES ABSOLUTE AUTO 1.02 K/mm3 (0.16-1.47); MONOCYTES PERCENT AUTO 7 % (4-13); Mean Corpuscular HGB 23.5 pg (26.0-34.0); Mean Corpuscular Volume 81 fL (80-100); Mean Platelet Volume 9.5 fL (9.1-12.4); NEUTROPHILS ABSOLUTE AUTO 11.78 K/mm3 (1.96-9.15); NEUTROPHILS PERCENT AUTO 85 % (41-73); Platelet Count 471 K/mm3 (150-400); RDW Coefficient Variation 17.1 % (11.7-14.2); Red Blood Cell Count 3.53 M/mm3 (3.80-5.20); White Blood Cell Count 13.84 K/mm3 (4.00-11.30)
[2020-09-15 13:05] LABS: Alanine Aminotransfer (ALT/SGP 13 U/L (12-78); Albumin, Blood 2.1 g/dL (3.4-5.0); Albumin/Globulin Ratio 0.5 (0.8-1.8); Alk Phos 106 U/L (50-136); Anion Gap 9 mmol/L (6-16); Aspartate Aminotrans (AST/SGOT 32 U/L (12-37); Bilirubin, Total 0.3 mg/dL (0.1-1.0); Blood Urea Nitrogen 30 mg/dL (8-24); Bun/Creatinine Ratio 33.3 (12.0-20.0); CO2, Blood 25 mmol/L (21-32); Calcium, Blood 8.4 mg/dL (8.5-10.1); Chloride, Blood 99 mmol/L (98-108); Globulin, Blood 4.5 g/dL (2.2-4.0); Glomerular Filtration Rate >60 (60-); Glucose, Blood 181 mg/dL (70-99); Potassium, Blood 4.8 mmol/L (3.5-5.5); Sodium, Blood 133 mmol/L (136-145); Total Protein, Blood 6.6 g/dL (6.4-8.2); Troponin I 0.043 ng/mL (0.000-0.040)
[2020-09-15] MEDS ORDERED: MS Contin15 MG PO (13:35)
[2020-09-15] MEDS ORDERED: ESCI10 PO (13:36)
[2020-09-15] MEDS ORDERED: LISI5 PO (13:37)
[2020-09-15] MEDS ORDERED: NEURONTIN300 MG PO (13:37)
[2020-09-15] MEDS ORDERED: AMLODIPINE BESYL5 MG PO (13:37)
[2020-09-15] MEDS ORDERED: HUMALOG KW100 UNIT/1 SC ×2 (13:38→14:11)
[2020-09-15] MEDS ORDERED: BASAGLAR K100 UNIT/1 SC (13:40)
[2020-09-15] MEDS ORDERED: ROPINIROLE HCL1 MG PO (13:40)
[2020-09-15] MEDS ORDERED: OXYC10TA19 PO (13:40)
[2020-09-15] MEDS ORDERED: OMEP20ER PO (13:41)
[2020-09-15] MEDS ORDERED: FUROSEMIDE20 MG PO (13:42)
[2020-09-15] MEDS ORDERED: TICA90TA PO (13:43)
[2020-09-15] MEDS ORDERED: POTA8 PO (13:43)
[2020-09-15] MEDS ORDERED: ATOR40TA PO (13:44)
[2020-09-15] MEDS ORDERED: METO25ER PO (13:44)
[2020-09-15] MEDS ORDERED: Aspir 8181 MG PO (14:10)
--- NOTE | 2020-09-15 18:22 | NUR ---
pt arrived to pcu via gurney from er, she is a/ox3, pleasant and cooperative with care, follows commands well, denies pain or sob at this time, lungs are clear t/o, resp even and unlabored, no cough noted, hrr, tele in place running sr per monitor, see strip, no edema noted, ppp+2, cap refill <3sec, vs stable, afebrile, iv site is clear and patent, btx4, abd round soft nontender, voids, she reports a uti and is not voiding as freaquently as normal, skin is pale, clear and dry, maew, ambulates indep, koby, oriented to room layout and call system, call light in reach.
--- NOTE | 2020-09-15 19:30 | NUR ---
PT REPORTS HAVING DIFFICULTY EATING FOR THE PAST TWO WEEKS. SHE STATES SHE IS ONLY ABLE TO TOLERATE A SMALL AMOUNT OF FOOD AT A TIME AND THAT SHE HAS BEEN VOMITING UNDIGESTED FOOD. SHE STATES THAT HER ABDOMEN IS SO PAINFUL THAT SHE FEELS SHE WILL VOMIT EVEN WITH GENTLE PALPATION. SHE STATES THAT SHE DRY HEAVES IF SHE DOES NOT KEEP A LITTLE SOMETHING IN HER STOMACH.
[2020-09-15 22:46] LABS: Percent Saturation 10.4 % (15.0-50.0)
[2020-09-16 04:22] LABS: BASOPHILS ABSOLUTE AUTO 0.06 K/mm3 (0.00-0.23); BASOPHILS PERCENT AUTO 1 % (0-2); EOSINOPHILS PERCENT AUTO 1 % (0-6); Hematocrit 26.9 % (33.0-51.0); Hemoglobin 7.9 g/dL (11.5-16.0); IMMATURE GRAN PERCENT AUTO 1 % (0-1); LYMPHOCYTES ABSOLUTE AUTO 1.28 K/mm3 (0.84-5.20); LYMPHOCYTES PERCENT AUTO 10 % (21-46); MONOCYTES ABSOLUTE AUTO 1.15 K/mm3 (0.16-1.47); MONOCYTES PERCENT AUTO 9 % (4-13); Mean Corpuscular HGB 23.2 pg (26.0-34.0); Mean Corpuscular HGB Conc 29.4 g/dL (31.5-36.5); Mean Corpuscular Volume 79 fL (80-100); Mean Platelet Volume 9.5 fL (9.1-12.4); NEUTROPHILS ABSOLUTE AUTO 10.11 K/mm3 (1.96-9.15); NEUTROPHILS PERCENT AUTO 79 % (41-73); Platelet Count 443 K/mm3 (150-400); RDW Coefficient Variation 17.2 % (11.7-14.2); RDW Standard Deviation 49.9 fL (35.1-46.3); Red Blood Cell Count 3.41 M/mm3 (3.80-5.20)
[2020-09-16 04:43] LABS: Anion Gap 6 mmol/L (6-16); Blood Urea Nitrogen 29 mg/dL (8-24); Bun/Creatinine Ratio 31.3 (12.0-20.0); CO2, Blood 28 mmol/L (21-32); Calcium, Blood 8.3 mg/dL (8.5-10.1); Chloride, Blood 99 mmol/L (98-108); Creatinine, Blood 0.93 mg/dL (0.40-1.00); Glomerular Filtration Rate >60 (60-); Glucose, Blood 129 mg/dL (70-99); Potassium, Blood 4.7 mmol/L (3.5-5.5); Sodium, Blood 133 mmol/L (136-145); Troponin I 0.032 ng/mL (0.000-0.040)
--- NOTE | 2020-09-16 05:18 | NUR ---
SHIFT SUMMARY: STAR IS A&OX3. VSS, NO ACUTE EVENTS OVERNIGHT. SHE HAS BEEN COOPERATIVE WITH CARE. TOLERATING SMALL AMOUNTS OF SF JELLO, VOIDING WITHOUT DIFFICULTY AND DID HAVE A BM. SHE REPORTS ADEQUATE PAIN CONTROL WITH THE MORPHINE AND OXY. LUNGS MILDLY DIMINISHED IN THE BASES WITH RESPS BETWEEN 20 AND 22, MAINTAINING SATS >92% ORA. TELE NSR PER TECH. IV PATENT. SHE IS INDEPENDENT IN THE ROOM, ABLE TO MAKE HER NEEDS KNOWN. SHE IS LYING IN BED WITH HER CALL LIGHT IN REACH. WILL REPORT TO DAY SHIFT RN.
--- NOTE | 2020-09-16 08:00 | NUR ---
pt laying in bed, is uncomfortable so go up to a chair, a/ox3, pleasant and cooperative with care, follows commands well, reports abd pain that wraps around to her back, lungs are clear t/o, resp even and unlabored, no cough noted, hrr, tele in place running sr per monitor, see strip, no edema noted, ppp+1, cap refill <3sec, vs stable, afebrile, iv site is clear and patent, btx4, abd large soft nontender, voids, she states no as much as normal, has been constipated, but did have a bm last night, skin c/w/d, maew, koby, call light in reach.
[2020-09-16] MEDS ORDERED: DULCOLAX400 MG/5 M PO (12:56)
[2020-09-16] MEDS ORDERED: BISA10S PR (12:57)
[2020-09-16] MEDS ORDERED: METO5A PO (12:58)
[2020-09-16] MEDS ORDERED: MIRALAX17 GM PO (12:59)
[2020-09-16] MEDS ORDERED: SENN187 PO (12:59)
--- NOTE | 2020-09-16 15:11 | NUR ---
PT HAD A SHOWER, HAS BEEN DISCHARGED TO HOME, WENT OVER DISCHARGE INSTRUCTIONS WITH HER AND HER DAUGHTER, SHE VERBALIZED UNDERSTANDING. SHE HAS A HARD SCRIPT FOR MORPHINE, THIS WAS PLACED IN HER FOLDER WITH HER INSTRUCTIONS BY THE PT. IV REMOVED INTACT, LEFT VIA WHEELCHAIR WITH ELECTROPHYSIOLOGY SCIENTIST AND DAUGHTER IN ATTENDENCE.
== END 2020-09-16 15:14 | disposition home or self-care (01) ==
LOC: ER 12:11 → PCU 12:12
PROVIDERS: Emergency Medicine; ADMIT Internal Medicine
DX: I21.4 Non-ST elevation (NSTEMI) myocardial infarction (principal); I25.10 Atherosclerotic heart disease of native coronary artery without angina pectoris; I10 Essential (primary) hypertension; E11.9 Type 2 diabetes mellitus without complications; C78.00 Secondary malignant neoplasm of unspecified lung; C78.7 Secondary malignant neoplasm of liver and intrahepatic bile duct; C78.6 Secondary malignant neoplasm of retroperitoneum and peritoneum; G25.81 Restless legs syndrome; E78.5 Hyperlipidemia, unspecified; K21.9 Gastro-esophageal reflux disease without esophagitis; D64.9 Anemia, unspecified; F32.9 Major depressive disorder, single episode, unspecified; K59.00 Constipation, unspecified; E66.01 Morbid (severe) obesity due to excess calories; Z68.42 Body mass index [BMI] 45.0-49.9, adult; Z87.891 Personal history of nicotine dependence; Z79.82 Long term (current) use of aspirin; Z79.4 Long term (current) use of insulin; Z95.5 Presence of coronary angioplasty implant and graft; Z88.1 Allergy status to other antibiotic agents; Z88.5 Allergy status to narcotic agent; Z88.2 Allergy status to sulfonamides; Z88.8 Allergy status to other drugs, medicaments and biological substances; Z79.02 Long term (current) use of antithrombotics/antiplatelets
CPT/HCPCS: 36415; 71045; 80048; 80053; 82607; 82728; 82746; 82947; 83540; 83550; 83735; 84484; 85025; 93005; 93010; 93308; 93321; 96372; 96374; 96376; 99285-25; A9270; G0378; J1650

== ENCOUNTER 2020-09-27 03:33 | Inpatient (IN) | payer OTHER ==
[~2020-09-27] VITALS: Ht 160 cm; Wt 122.1 kg
[~2020-09-27 03:33] MED LIST changes: +AMLODIPINE BESYL5 MG PO; +ATOR40TA PO; +Aspir 8181 MG PO; +BASAGLAR K100 UNIT/1 SC; +BISA10S PR; +DULCOLAX400 MG/5 M PO; +ESCI10 PO; +FUROSEMIDE20 MG PO; +HUMALOG KW100 UNIT/1 SC; +METO25ER PO; +METO5A PO; +MIRALAX17 GM PO; +MS Contin15 MG PO; +NEURONTIN300 MG PO; +OXYC10TA19 PO; +POTA8 PO; +ROPINIROLE HCL1 MG PO; +TICA90TA PO
[2020-09-27 06:46] LABS: BASOPHILS ABSOLUTE AUTO 0.04 K/mm3 (0.00-0.23); BASOPHILS PERCENT AUTO 0 % (0-2); EOSINOPHILS ABSOLUTE AUTO 0.04 K/mm3 (0.00-0.68); EOSINOPHILS PERCENT AUTO 0 % (0-6); Hematocrit 27.4 % (33.0-51.0); Hemoglobin 7.9 g/dL (11.5-16.0); IMMATURE GRAN ABSOLUTE AUTO 0.07 K/mm3 (0.00-0.10); IMMATURE GRAN PERCENT AUTO 1 % (0-1); LYMPHOCYTES ABSOLUTE AUTO 0.78 K/mm3 (0.84-5.20); LYMPHOCYTES PERCENT AUTO 6 % (21-46); MONOCYTES ABSOLUTE AUTO 1.17 K/mm3 (0.16-1.47); MONOCYTES PERCENT AUTO 9 % (4-13); Mean Corpuscular HGB Conc 28.8 g/dL (31.5-36.5); Mean Corpuscular Volume 80 fL (80-100); NEUTROPHILS ABSOLUTE AUTO 11.63 K/mm3 (1.96-9.15); NEUTROPHILS PERCENT AUTO 85 % (41-73); Platelet Count 418 K/mm3 (150-400); RDW Coefficient Variation 17.4 % (11.7-14.2); RDW Standard Deviation 50.9 fL (35.1-46.3); Red Blood Cell Count 3.44 M/mm3 (3.80-5.20); White Blood Cell Count 13.73 K/mm3 (4.00-11.30)
[2020-09-27 06:49] LABS: Anion Gap 14 mmol/L (6-16); Blood Urea Nitrogen 61 mg/dL (8-24); Bun/Creatinine Ratio 11.2 (12.0-20.0); CO2, Blood 21 mmol/L (21-32); Calcium, Blood 8.5 mg/dL (8.5-10.1); Chloride, Blood 98 mmol/L (98-108); Creatinine, Blood 5.44 mg/dL (0.40-1.00); Glomerular Filtration Rate 9 (60-); Glucose, Blood 120 mg/dL (70-99); Potassium, Blood 4.8 mmol/L (3.5-5.5); Sodium, Blood 133 mmol/L (136-145); Troponin I <0.015 ng/mL (0.000-0.040)
[2020-09-27 09:12] LABS: Albumin, Blood 2.2 g/dL (3.4-5.0); Albumin/Globulin Ratio 0.4 (0.8-1.8); Bilirubin, Direct 0.1 mg/dL (0.0-0.3); Bilirubin, Indirect 0.3 mg/dL (0.1-0.7); Bilirubin, Total 0.4 mg/dL (0.1-1.0); Globulin, Blood 5.2 g/dL (2.2-4.0); Total Protein, Blood 7.4 g/dL (6.4-8.2)
[2020-09-27] MEDS ORDERED: FERSU300 PO (09:46)
[2020-09-27] MEDS ORDERED: AURYXIA210 MG PO (09:47)
[2020-09-27] MEDS ORDERED: ONDA4 PO (09:47)
[2020-09-27] MEDS ORDERED: Acetaminophen325 M1 PO (09:48)
--- NOTE | 2020-09-27 12:43 | NUR ---
PT ARRIVED IN THE UNIT VIA STRETCHER FROM [facility] PT WAS ABLE TO STAND TRANSFER TO PCU BED SBA, ALERT AND ORIENTED X4 AT BASELINE, ACCOMPANIED BY NIECE AT BEDSIDE. PT IS HERE FOR [place] WITH HX LUNG CA WITH METS, PT IS DNR PALLIATIVE CARE CONSULTED. PT C/ NAUSEA, VOMITING AND ABD PAIN, PT HAD GREEN LIQUID EMESIS X1 UPON ARRIVAL, ZOFRAN GIVEN AND WAS EFFECTIVE PT WAS ABLE TO EAT BREAKFAST TRAY ORDERED. FENTANYL 50MCG WAS GIVEN FOR ABD PAIN 02/27 AND WAS EFFECTIVE. PT ABD IS TENDER TO PALPATE, MODERATELY DISTENDED, PT ALSO C/O NOT BEING ABLE TO VOID BUT HAS FREQUENT URGENCY BLADDER SCAN SHOWS >800MLS URINE RETAINED POSS ASCITES WAS SCANNED TREJO WAS INSERTED AND THERE WAS ONLY POSS 10CC ON THE CATHETER TUBE UNABLE TO COLLECT ENOUGH SAMPLE FOR URINE FOR UA VITALS HRR SR 90'S, BP SYSOTLIC 110'S, SATS ABOVE 92% ON RA, AFEBRILE. NS RUNNING AT 100MLS/HR. PT RESTING NOW IN BED CALL LIGHTS IN REACH WILL MONITOR
--- NOTE | 2020-09-27 14:50 | NUR ---
MAYA MITCHELL'Anthony PER PT'S REQUESTS AND PER MD'S ORDER, STATUS CHANGED TO MEDICAL WITH TELE. NS RUNNING AT 100MLS/HR, NIECE AT BEDSIDE, PT TOLERATING FOOD/DIET. WILL MONITOR
--- NOTE | 2020-09-27 16:56 | NUR ---
PT POST PARACENTESIS 4L WAS TAKEN OUT PER [facility] TECH, PT ALSO TRANSFERRED TO 356 VIA WHEELCHAIR WITH ALL BELONGINGS SENT NIECE AT BEDSIDE IS AWARE. REPORT GIVEN TO VICKEY AGUILAR
[2020-09-27 17:08] LABS: Source, Urine Clean Catch
[2020-09-27 17:11] LABS: Appearance, Urine Cloudy (Clear); Blood, Urine 5+ (Neg); Color, Urine Brown (P-Yellow); Glucose Qualitative, Urine Neg (Neg); Ketones, Urine 1+ (Neg); Leukocyte Esterase, Urine 3+ (Neg); Nitrite, Urine Pos (Neg); Protein, Urine 3+ (Neg); Specific Gravity, Urine 1.025 (1.003-1.022); Urobilinogen, Urine 1+ (Normal); pH, Urine 6.5 (5.0-8.0)
[2020-09-27 17:23] LABS: Bilirubin, Urine 2+ (Neg)
[2020-09-27 17:29] LABS: Bacteria Many /hpf; Red Blood Cells, Urine TNTC /hpf (0-2); Squamous Epithelial Cells Few /hpf (Few)
[2020-09-27 17:30] LABS: White Blood Cells, Urine 25-50 /hpf (0-5)
--- NOTE | 2020-09-27 17:48 | NUR ---
PCU TRANSFER- PT ARRIVED TO ROOM 356 VIA W/C, JAMAR AT BEDSIDE. PT A SBA UP TO BSC. PT BEGAN VOMITTING UPON ARRIVAL WITH 750ML GREEN EMESIS. PT HAD WITH PARACENTESIS THE AFTERNOON WITH 4L OFF, ALBUMIN STARTED. IV TO LAC RUNNING NS AT 100ML/HR. LS CLEAR, DIMINISHED IN THE BASES ON RA. ABD MODERATELY DISTENDED, PT REPORTS IMPROVED AFTER PARACENTESIS. PT REPORTS 3/10 ABD PAIN. TELE SR AT 90. PT WITH APROX 5ML OF BROWN URINE, SENT TO LAB PER ORDERS. PT ORIENTED TO ROOM AND CALL SYSTEM, CALL LIGHT IN REACH. EGGCRATE PLACED TO BED FOR COMFORT.
[2020-09-27 18:19] LABS: Albumin, Body Fluid 2.1 g/dL
--- NOTE | 2020-09-27 18:20 | NUR ---
MESSAGE LEFT FOR DR MARTE HOME MEDICATIONS HAVE NOT BEEN ORDERED.
[2020-09-27 18:24] LABS: Glucose, Body Fluid 143 mg/dL
[2020-09-27 18:35] LABS: Lactate Dehydrogenase, Body Fl 260 U/L
[2020-09-27 18:42] LABS: Protein, Body Fluid 4.7 g/dL
[2020-09-27 18:44] LABS: Automated BF RBC Count 0.002 M/mm3 (0-0); Automated BF WBC Count 0.574 K/mm3 (0-999); Body Fluid WBC Count 574 /mm3 (0-999)
[2020-09-27 18:45] LABS: RBC Count, Body Fluid 2000 /mm3 (0-0)
[2020-09-27 19:19] LABS: Total Cell Count, Body Fluid 100
[2020-09-27 19:20] LABS: Appearance, Body Fluid Hazy (Clear); Color, Body Fluid Yellow (None-Yellow)
--- NOTE | 2020-09-28 00:07 | NUR ---
PATIENT NAUSEOUS AND VOMITING. PO ZOFRAN IN EMAR. PATIENT NOT ABLE TO HOLD DOWN PO MEDICATION. HOSPITALIST ROSALINE NEWTON ORDERED IV ZOFRAN 4 MG Q4 AND IV PHENERGAN 12.5-25 MG Q4. HOSPITALIST REPORTS TO GIVE IV PHENERGAN 25 MG FOR FIRST DOSE. NAUSEA REDUCE AND PATIENT ABLE TO GO BACK TO SLEEP. CALL LIGHT IN REACH.
--- NOTE | 2020-09-28 04:21 | NUR ---
SHIFT SUMMARY PATIENT HAD 600mL OF EMESIS AFTER SHIFT CHANGE X ONE EVENT. NOT ABLE TO HOLD DOWN PO ZOFRAN. AXOX 3 AND SBA TO BSC. HOSPITALIST ROSALINE ORDERED IV ZOFRAN AND IV PHENERGAN. IV PHENERGAN GIVEN WITH GOOD EFFECT. IV ZOFRAN GIVEN X ONE. PIV REMAINS INTACT. NS INFUSING AT 100 mL/HR. VP [facility] [employer] REPORTS NSR 87. CBG 177. DENIES PAIN AND SOB. CALL LIGHT IN REACH. BED IN LOWEST POSITION. WILL CONTINUE TO MONITOR UNTIL DAY SHIFT NURSE ASSUMES CARE.
[2020-09-28 05:51] LABS: BASOPHILS ABSOLUTE AUTO 0.06 K/mm3 (0.00-0.23); BASOPHILS PERCENT AUTO 0 % (0-2); EOSINOPHILS ABSOLUTE AUTO 0.04 K/mm3 (0.00-0.68); EOSINOPHILS PERCENT AUTO 0 % (0-6); Hematocrit 26.9 % (33.0-51.0); Hemoglobin 8.1 g/dL (11.5-16.0); IMMATURE GRAN ABSOLUTE AUTO 0.14 K/mm3 (0.00-0.10); IMMATURE GRAN PERCENT AUTO 1 % (0-1); LYMPHOCYTES ABSOLUTE AUTO 0.67 K/mm3 (0.84-5.20); LYMPHOCYTES PERCENT AUTO 5 % (21-46); MONOCYTES ABSOLUTE AUTO 1.28 K/mm3 (0.16-1.47); MONOCYTES PERCENT AUTO 9 % (4-13); Mean Corpuscular HGB 23.3 pg (26.0-34.0); Mean Corpuscular HGB Conc 30.1 g/dL (31.5-36.5); Mean Corpuscular Volume 77 fL (80-100); Mean Platelet Volume 10.2 fL (9.1-12.4); NEUTROPHILS ABSOLUTE AUTO 11.84 K/mm3 (1.96-9.15); NEUTROPHILS PERCENT AUTO 84 % (41-73); Platelet Count 370 K/mm3 (150-400); RDW Coefficient Variation 17.6 % (11.7-14.2); RDW Standard Deviation 49.8 fL (35.1-46.3); Red Blood Cell Count 3.48 M/mm3 (3.80-5.20); White Blood Cell Count 14.03 K/mm3 (4.00-11.30)
[2020-09-28 06:16] LABS: Albumin, Blood 1.9 g/dL (3.4-5.0); Anion Gap 21 mmol/L (6-16); Blood Urea Nitrogen 36 mg/dL (8-24); Bun/Creatinine Ratio 8.8 (12.0-20.0); CO2, Blood 11 mmol/L (21-32); Calcium, Blood 8.3 mg/dL (8.5-10.1); Chloride, Blood 101 mmol/L (98-108); Glomerular Filtration Rate 12 (60-); Glucose, Blood 55 mg/dL (70-99); Potassium, Blood 4.8 mmol/L (3.5-5.5); Sodium, Blood 133 mmol/L (136-145)
[2020-09-28] MEDS ORDERED: OMEP20ER PO (16:28)
[2020-09-28 17:53] LABS: PO2 Arterial 79.2 mmHg (80-100); pH Blood Arterial 7.32 (7.35-7.45)
--- NOTE | 2020-09-28 18:35 | NUR ---
SHIFT SUMMARY PT WAS VERY NAUSEATED AND PAINFUL THIS AM. MEDICATED FOR PAIN/NAUSEA PER EMAR. PT HAS RECEIVED PAIN AND NAUSEA MEDICATION MULTIPLE TIMES THIS SHIFT. SLEPT ALOT OF THE AFTERNOON. PT UNABLE TO EAT ANYTHING UNTIL THIS EVENING. PT EATING DINNER ROLL AND PART OF A BURRITO HER DAUGHTER BROUGHT HER. IVF INFUSING WITHOUT DIFFICULTY. DR. DENNY IN TO SEE PT. SEE NEW ORDERS. PT NOT VOIDING MUCH THIS SHIFT AND DR. DENNY AWARE. NO ACUTE CHANGES AT THIS TIME. ULTRASOUND IN ROOM AT THIS TIME. CALL LIGHT IN REACH. WILL CONTINUE TO MONITOR.
[2020-09-29 04:51] LABS: BASOPHILS ABSOLUTE AUTO 0.03 K/mm3 (0.00-0.23); BASOPHILS PERCENT AUTO 0 % (0-2); EOSINOPHILS ABSOLUTE AUTO 0.03 K/mm3 (0.00-0.68); EOSINOPHILS PERCENT AUTO 0 % (0-6); Hematocrit 24.8 % (33.0-51.0); Hemoglobin 7.4 g/dL (11.5-16.0); IMMATURE GRAN ABSOLUTE AUTO 0.06 K/mm3 (0.00-0.10); IMMATURE GRAN PERCENT AUTO 1 % (0-1); LYMPHOCYTES ABSOLUTE AUTO 0.66 K/mm3 (0.84-5.20); LYMPHOCYTES PERCENT AUTO 6 % (21-46); MONOCYTES ABSOLUTE AUTO 0.96 K/mm3 (0.16-1.47); MONOCYTES PERCENT AUTO 8 % (4-13); Mean Corpuscular HGB Conc 29.8 g/dL (31.5-36.5); Mean Corpuscular Volume 77 fL (80-100); Mean Platelet Volume 9.8 fL (9.1-12.4); NEUTROPHILS ABSOLUTE AUTO 10.03 K/mm3 (1.96-9.15); NEUTROPHILS PERCENT AUTO 85 % (41-73); Platelet Count 314 K/mm3 (150-400); RDW Coefficient Variation 17.6 % (11.7-14.2); RDW Standard Deviation 49.9 fL (35.1-46.3); Red Blood Cell Count 3.22 M/mm3 (3.80-5.20); White Blood Cell Count 11.77 K/mm3 (4.00-11.30)
--- NOTE | 2020-09-29 04:51 | NUR ---
SHIFT SUMMARY PATIENT NAUSEOUS AND VOMITING X TWO. IV PHENERGAN AND IV REGLAN GIVEN PER EMAR. PIV REMAINS INTACT. SODIUM BICARBONATE STARTED THIS SHIFT AT 75mL/HR. ARANESP GIVEN X ONE PER EMAR. VSS/AFEBRILE. REPORTED ABDOMINAL PAIN X ONE AND IV FENTANYL 50 MCG GIVEN. CBG 196. CENTRAL STERILE TECHNICIAN REPORTS NSR 95. CALL LIGHT IN REACH. BED IN LOWEST POSITION. WILL CONTINUE TO MONITOR UNTIL DAY SHIFT NURSE ASSUMES CARE.
[2020-09-29 05:20] LABS: Albumin, Blood 1.9 g/dL (3.4-5.0); Anion Gap 11 mmol/L (6-16); Blood Urea Nitrogen 69 mg/dL (8-24); Bun/Creatinine Ratio 17.1 (12.0-20.0); CO2, Blood 21 mmol/L (21-32); Calcium, Blood 7.8 mg/dL (8.5-10.1); Chloride, Blood 101 mmol/L (98-108); Creatinine, Blood 4.03 mg/dL (0.40-1.00); Glomerular Filtration Rate 12 (60-); Glucose, Blood 200 mg/dL (70-99); Magnesium, Blood 2.4 mg/dL (1.6-2.4); Phosphorus, Blood 5.9 mg/dL (2.5-4.9); Potassium, Blood 4.5 mmol/L (3.5-5.5); Sodium, Blood 133 mmol/L (136-145)
--- NOTE | 2020-09-29 16:22 | NUR ---
TRANSFERING CARE TO JEFF LÓPEZ. PT AOX3 AND IS COOOPERATIVE OF CARE. PT CALL APPROPRIATELY. TREATED FOR PAIN PER EMAR. PT STANDBY TO BEDSIDE COMODE. NO DISTRESS NOTED.
[2020-09-30 04:55] LABS: Hematocrit 28.8 % (33.0-51.0); Hemoglobin 8.6 g/dL (11.5-16.0)
--- NOTE | 2020-09-30 05:30 | NUR ---
SHIFT SUMMARY: AFEB. 02 WNL ON RA. SINUS TACHYCARDIA PER TELE BENEFITS PROCESSOR W/ RATES RANGING FROM 100-120. PT AWAKE FOR MOST OF THE NIGHT. SEVERAL BOUTS OF N/V. PHENERGAN ADMINISTERED PER ORDERS. REPORTS "LOWER ABD PAIN REACHING AROUND TO BOTH SIDES". MED W/ FENTANYL W/ SOME PAIN RELIEF. PT STATES THIS PAIN IS CONSISTENT W/ BASELINE ABD PAIN FOR WHICH SHE TAKES "OXYCODONE AND SMOKES MARIJUANA AT HOME". ABD LARGE, ROUND, FIRM, OBESE. PT STATES ENTIRE ABD TENDER W/ PALPATION. STATES SHE HAS BEEN PASSING GAS AND RECENTLY HAS HAD BM. UP W/ 1 ASSIST TO BSC. WCTM.
[2020-09-30 05:44] LABS: Albumin, Blood 2.2 g/dL (3.4-5.0); Anion Gap 12 mmol/L (6-16); Blood Urea Nitrogen 70 mg/dL (8-24); Bun/Creatinine Ratio 27.3 (12.0-20.0); CO2, Blood 27 mmol/L (21-32); Calcium, Blood 8.6 mg/dL (8.5-10.1); Chloride, Blood 94 mmol/L (98-108); Creatinine, Blood 2.56 mg/dL (0.40-1.00); Glomerular Filtration Rate 20 (60-); Glucose, Blood 313 mg/dL (70-99); Magnesium, Blood 2.4 mg/dL (1.6-2.4); Phosphorus, Blood 4.7 mg/dL (2.5-4.9); Sodium, Blood 133 mmol/L (136-145)
--- NOTE | 2020-09-30 17:29 | NUR ---
SHIFT SUMMARY PATIENT ALERT AND ORIENTED THROUGHOUT THIS SHIFT. PATIENT IS A 1 PERSON ASSIST THIS SHIFT. PATIENT REFUSED SHOWER WITH AUTOMOBILE WRECKER THIS AM, STATING THAT SHE WOULD WAIT UNTIL HER NIECE ARRIVED TO HELP HER SHOWER. PATIENT SHOWERED WITH HELP OF NIECE. PATIENT REMAINS NAUSEOUS THROUGHOUT THIS SHIFT, MEDICATED FOR NAUSEA THROUGHOUT THE SHIFT. PATIENT MEDICATED FOR PAIN 2X THIS SHIFT. PATIENT ALTERNATES SITTING UP IN BED AND LAYING IN BED THIS SHIFT. PATIENT LETHARGIC THROUGHOUT THIS SHIFT WITH MINIMAL RESPONSE TO STAFF. PATIENT CURRENTLY SITTING UP IN BED, DAUGHTER AT BEDSIDE.
[2020-10-01 05:36] LABS: BASOPHILS ABSOLUTE AUTO 0.04 K/mm3 (0.00-0.23); BASOPHILS PERCENT AUTO 0 % (0-2); EOSINOPHILS ABSOLUTE AUTO 0.03 K/mm3 (0.00-0.68); EOSINOPHILS PERCENT AUTO 0 % (0-6); Hematocrit 25.6 % (33.0-51.0); Hemoglobin 7.8 g/dL (11.5-16.0); IMMATURE GRAN ABSOLUTE AUTO 0.08 K/mm3 (0.00-0.10); IMMATURE GRAN PERCENT AUTO 1 % (0-1); LYMPHOCYTES ABSOLUTE AUTO 0.88 K/mm3 (0.84-5.20); LYMPHOCYTES PERCENT AUTO 7 % (21-46); MONOCYTES ABSOLUTE AUTO 0.92 K/mm3 (0.16-1.47); MONOCYTES PERCENT AUTO 7 % (4-13); Mean Corpuscular HGB 22.7 pg (26.0-34.0); Mean Corpuscular HGB Conc 30.5 g/dL (31.5-36.5); Mean Corpuscular Volume 75 fL (80-100); Mean Platelet Volume 10.2 fL (9.1-12.4); NEUTROPHILS ABSOLUTE AUTO 10.59 K/mm3 (1.96-9.15); NEUTROPHILS PERCENT AUTO 85 % (41-73); Platelet Count 345 K/mm3 (150-400); RDW Standard Deviation 48.7 fL (35.1-46.3); Red Blood Cell Count 3.43 M/mm3 (3.80-5.20); White Blood Cell Count 12.54 K/mm3 (4.00-11.30)
[2020-10-01 06:07] LABS: Albumin, Blood 2.1 g/dL (3.4-5.0); Anion Gap 9 mmol/L (6-16); Blood Urea Nitrogen 75 mg/dL (8-24); Bun/Creatinine Ratio 37.3 (12.0-20.0); CO2, Blood 32 mmol/L (21-32); Calcium, Blood 8.9 mg/dL (8.5-10.1); Chloride, Blood 89 mmol/L (98-108); Creatinine, Blood 2.01 mg/dL (0.40-1.00); Glomerular Filtration Rate 27 (60-); Glucose, Blood 264 mg/dL (70-99); Magnesium, Blood 2.5 mg/dL (1.6-2.4); Phosphorus, Blood 4.4 mg/dL (2.5-4.9); Potassium, Blood 3.7 mmol/L (3.5-5.5); Sodium, Blood 130 mmol/L (136-145)
--- NOTE | 2020-10-01 06:48 | NUR ---
SHIFT SUMMARY: VSS. AFEB. AAOX3. SLOW TO RESPOND. REPORTS CONTINUOUS NAUSEA. PHENERGAN GIVEN PER ORDERS. SEVERAL BOUTS OF VOMITING DARK GREEN LIQUID EMESIS EARLY IN THE NIGHT. NO VOMITING REPORTED FROM MIDNIGHT UNTIL NOW. CONTINUES W/ ABD TENDERNESS. ANALGESICS ADMINISTERED PER EMAR. PT NIECE AT BEDSIDE ALL NIGHT TO ASSIST W/ PT FREQUENT REQUESTS. UP TO BSC W/ SBA. NO ACUTE OVERNIGHT EVENTS. WCTM.
--- NOTE | 2020-10-01 14:56 | NUR ---
PATIENT HAS BEEN COOPERATIVE WITH STAFF. HAS HAD FAMILY MEMBER AT BEDSIDE SINCE LAST NIGHT WHICH HAS HELPED A LOT; PATIENT SEEMS TO GET LONELY AND NEEDS TO HAVE SOMEONE WITH HER AT ALL TIMES. BP CAN BE SLIGHTLY ELEVATED BUT OTHERWISE VITALS HAVE BEEN STABLE AND WNL. TELE MONITOR IN PLACE; PATIENT DOES TEND TO DISCONNECT THE WIRING FROM THE BOX. AMBULATES WITH ONE PERSON SBA. COMPLAINS OF N/V AND PAIN REGULARLY AND IS MEDICATED APPROPRIATELY PER EMAR. PATIENT IS IN BED HAVING ABDOMENAL U/S AT THIS TIME. CALL LIGHT WITHIN REACH.
[2020-10-02 06:44] LABS: Hematocrit 26.1 % (33.0-51.0)
[2020-10-02 06:53] LABS: Albumin, Blood 1.8 g/dL (3.4-5.0); Anion Gap 9 mmol/L (6-16); Blood Urea Nitrogen 68 mg/dL (8-24); Bun/Creatinine Ratio 45.3 (12.0-20.0); CO2, Blood 32 mmol/L (21-32); Calcium, Blood 8.3 mg/dL (8.5-10.1); Chloride, Blood 91 mmol/L (98-108); Ferritin, Serum 358 ng/mL (8-252); Glomerular Filtration Rate 38 (60-); Glucose, Blood 221 mg/dL (70-99); Iron Serum 34 ug/dL (50-170); Magnesium, Blood 2.4 mg/dL (1.6-2.4); Percent Saturation 11.6 % (15.0-50.0); Phosphorus, Blood 4.2 mg/dL (2.5-4.9); Potassium, Blood 3.9 mmol/L (3.5-5.5); Sodium, Blood 132 mmol/L (136-145); Total Iron Binding Capacity 292 ug/dL (250-450)
--- NOTE | 2020-10-02 07:55 | NUR ---
SHIFT SUMMARY VSS. AFEB. AAOX3. FAMILY IN ROOM TO ASSIST W/ PT NEEDS. CONT W/ NAUSEA THRU THE NIGHT. 1 LARGE LIQUID, DARK GREEN EMESIS. ABD LARGE, ROUND, DISTENDED, TENDER. ANALGESICS GIVEN PER EMAR. NO ACUTE OVERNIGHT EVENTS. REPORT GIVEN TO DAY RN.
--- NOTE | 2020-10-02 08:21 | NUR ---
LEFT VOICE MESSAGE FOR ABOUT LIVER BIOPSY. HELD ASA, BRILINTA AND HEPARIN. NEED BRILINTA AND ASA TO BE HELD 5 DAYS. PLEASE CHECK CHART. WANT BRILINTA AND ASA HELD FOR 5 DAYS AND HEPARIN GIVEN TILL DAY BEFORE??
--- NOTE | 2020-10-02 17:39 | NUR ---
Met with pt for a brief visit today. She is lying on her left side facing he door. Her niece and caregiver Olimpia is present. Olimpia reports they states they always make sure someone is with Helena 10/02. Helena states she is having abd and some low back pain today, but that it's tolerable. She is still able to make her needs and wants known. She is waiting for her biopsy results before making any further decisions on which further direction to take her care. She begins to fall asleep during our visit, so ended it here for today.
--- NOTE | 2020-10-02 18:19 | NUR ---
ALERT. ORIENTED. TELE ON. IV LT MIDLINE PATENT AND SALINE LOCKED. MEDICATED FOR NAUSEA AND PAIN T/O SHIFT. POOR APPETITE. WILL HAVE GUIDED LIVER BIOPSY ON FRIDAY. SLOW TO RESPOND. YEAST TO GROIN LOOKING BETTER PER CAREGIVER. UNLABORED RESPIRATIONS. WAS IN TO SEE. NO ACUTE CHANGES. WCTM
--- NOTE | 2020-10-02 21:49 | NUR ---
PT with large emisis green bile. Medicated for abd & BACK PAIN OF 10 WITH 50 MCG FENTANYL & ANTIEMETIC PHENERGAN WITH MILD HELPFUL EFFECT. Caregiver at bedside.
--- NOTE | 2020-10-03 02:39 | NUR ---
60 year old PT appears older than actual age. Recent dx of cancer in abd with mets. PT has nausea vomiting & abd pain
--- NOTE | 2020-10-03 06:51 | NUR ---
PT with new dx of cancer with mets continues to have nausea & vomiting large amts & co sever abd back & bilat side pains 04/29 with poor control on IV fentanyl 50 mcg IV Q [address] Leary updated & rx for dilaudid 1 to 2 mg q 6 hrs prn obtained will administer & assess effect.
[2020-10-03 08:20] LABS: Hematocrit 28.5 % (33.0-51.0); Hemoglobin 8.6 g/dL (11.5-16.0)
[2020-10-03 08:38] LABS: Albumin, Blood 2.1 g/dL (3.4-5.0); Anion Gap 9 mmol/L (6-16); Blood Urea Nitrogen 58 mg/dL (8-24); Bun/Creatinine Ratio 39.2 (12.0-20.0); CO2, Blood 32 mmol/L (21-32); Calcium, Blood 8.8 mg/dL (8.5-10.1); Chloride, Blood 90 mmol/L (98-108); Creatinine, Blood 1.48 mg/dL (0.40-1.00); Glomerular Filtration Rate 38 (60-); Glucose, Blood 256 mg/dL (70-99); Magnesium, Blood 2.3 mg/dL (1.6-2.4); Phosphorus, Blood 4.2 mg/dL (2.5-4.9); Sodium, Blood 131 mmol/L (136-145)
--- NOTE | 2020-10-03 10:35 | NUR ---
LEFT MESSAGE ON VOICE MAIL THAT PATIENT HAD BITE OF TOAST AND LITTLE PIECE OF CHEESE AT ABOUT 0730. DID NOT KNOW SHE WAS GOING FOR PROCEDURE.
[2020-10-03 11:17] LABS: Influenza A, PCR NEGATIVE (NEGATIVE); Influenza B, PCR NEGATIVE (NEGATIVE); Resp Syncytial Virus, PCR NEGATIVE (NEGATIVE); SARS-Cov-2 (COVID-19) PCR, MMC NEGATIVE (NEGATIVE)
--- NOTE | 2020-10-03 13:37 | NUR ---
ASKED DR. HOUSER IF OK FOR PATIENT TO HAVE HER ESCITALOPRAM 30 MG HS. OK TO HAVE IF OK WITH IT. STS OK TO HAVE. MED NOT ON OUR FORMULARY, SO WILL SEND TO PHARM AFTER ORDERED.
--- NOTE | 2020-10-03 15:57 | NUR ---
PT TRANSFERED TO [facility] FROM FLOOR VIA GURNY. History, Chart, Medications and Allergies reviewed before start of procedure. Lungs clear T/O to Auscultation. Patient confirms NPO status and agrees with scheduled surgery. Pre-Op teaching done. Pt verbalizes understanding.
--- NOTE | 2020-10-03 16:16 | NUR ---
10/03/20 1616 DIXIE FORREST History, Chart, Medications and Allergies reviewed before start of procedure. 3-LEAD EKG REVIEWED WITH PHYSICIAN PRIOR TO START OF PROCEDURE. O2 VIA N/C INTACT THROUGHOUT SEDATION/PROCEDURE. MONITOR INTACT WITH CONTINUOUS PULSE OXIMETRY AND INTERMITTENT BP. MAC WITH DR. SANCHEZ.
--- NOTE | 2020-10-03 18:23 | NUR ---
ALERT. ORIENTED. NG TO LOW INTERMITTENT SUCTION. PATIENT SEEMS TO TOLERATE NG TUBE. PALLIATIVE CARE INVOLVED IN CARE. MEDICATED OFTEN FOR N/V AND PAIN BEFORE ENDOSCOPE. AFTER ENDOSCOPE NAUSEA MUCH BETTER. HOSPITALIST TO ADJUST MEDS TOMORROW. WCTM AND MAKE COMFORTABLE POSSIBLE.
--- NOTE | 2020-10-03 18:54 | NUR ---
Reveiw of pt with nursing and staff. Report from doctor schumacher on finding and prognosisis. Pt sleepy from procedure meds review of pain strateigies with nursing. Dr schumacher suggesting pt may be best served by hospice care. Will see follow for symptom managment and plan of care.
--- NOTE | 2020-10-03 22:11 | NUR ---
PT co 8/10 pain abd & head since 1 hr after 50 mcg fent IV Q 6 hrs prn administered. NPO & has nausea despite NG tube which is patent was placed earlier today when in endo. Unsuccessful endoscopy unable to advance scope per perport. RESEARCH NURSE Montserrat Vargas notified & 1 time order for 1 mg IV dilaudid obtained. Will administer & assess effect. HAd given phenergan 25 mg IV earlier with mild helpful effect. Recent dx metastatic Cancer. NPO on clinimix started today.
--- NOTE | 2020-10-04 01:13 | NUR ---
10/04/20 0100 Patient had pulled NG tube almost all the way out. NG replaced without difficulty. Pt tolerated fairly well. Tube placement checked via air ascultation, gastric content aspirated. Tube secured with NG statlock, returned to low intermittant suction. Primary RN notified.
[2020-10-04 05:27] LABS: Hemoglobin 8.4 g/dL (11.5-16.0)
[2020-10-04 05:47] LABS: Anion Gap 9 mmol/L (6-16); Blood Urea Nitrogen 61 mg/dL (8-24); Bun/Creatinine Ratio 40.1 (12.0-20.0); CO2, Blood 32 mmol/L (21-32); Calcium, Blood 8.6 mg/dL (8.5-10.1); Chloride, Blood 90 mmol/L (98-108); Creatinine, Blood 1.52 mg/dL (0.40-1.00); Glomerular Filtration Rate 37 (60-); Glucose, Blood 271 mg/dL (70-99); Magnesium, Blood 2.4 mg/dL (1.6-2.4); Phosphorus, Blood 4.5 mg/dL (2.5-4.9); Potassium, Blood 3.9 mmol/L (3.5-5.5); Sodium, Blood 131 mmol/L (136-145)
--- NOTE | 2020-10-04 08:00 | NUR ---
ORDER FROM DR SESAY FOR ONE TIME FENTANYL 25 UG IV. TO CHECK CHART AND ADJUST MEDS NOW NPO.
--- NOTE | 2020-10-04 13:01 | NUR ---
Spiritual care visit conducted. Patient tells me about her struggle to be diagnosed correctly and then to find out she has full-blown cancer has been difficult for patient. She is tearful at times in discussing her poor prognosis but also talks about the love of Chon that helps her through. Patient had much activity in her rm from the staff but I hope to have a more in depth conversation to pray with her and discuss her explore sources of meaning and value with end of life decisions being made. I will continue to remain available to patient and family.
--- NOTE | 2020-10-04 14:02 | NUR ---
Spiritual care follow-up visit. Patient is lying in bed and alert. Patient's daughter, Orestes, is bedside. We talk about the challenging news(to go home on Hospice) that they recieved this morning. Patient tells me that she is more worried for children (Orestes and Tobi) than for herself. We talk about plans going forward and what is meaningful. Patient talks about her family and her kevin and the strength she gets from both. I normalize her concerns and provide pastoral school counsellor, emotional support and prayer. Patient responds well and shows signs of being encouraged in her kevin and having an increased hope. I will continue to remain available to patient and family.
--- NOTE | 2020-10-04 16:20 | NUR ---
NOTIFIED PATIENT ON COMFORT CARE. LABS CANCELLED
--- NOTE | 2020-10-04 19:18 | NUR ---
PT alert & has patent NG tube draining to LISx with yellow milky fluid in tube. Has little dog resting on pillow in bed. Requests pain med for abd pain. Changed to comfort care today for metastatic cancer. Has multiple supportive family who assist with care & stay with PT. Support offered.
--- NOTE | 2020-10-04 19:35 | NUR ---
PT co back pain of 8 roxinol 20 mg sl given . NG patent drains thick yellow liquid. Multiple supportive family assist with cares. Pleasant & has been getting affairs in order due to terminal dx cancer with mets. Has tiny dog resting on pillow in room for comfort care.
--- NOTE | 2020-10-05 02:34 | NUR ---
PT continues with NG tube to low intermittant suction for comfort measure. Metastatic Cancer DX new after month long nausea & vomiting & abd pain. Pt has caregiver in room & up to BSC with 1 assist. Asking about DC plan. Discussed Hospice referral for assist with DC planning. Medicated multiple times for pain of 8/10 back sides abd with roxanol 20 mg with helpful effect & with iv ativan 1 mg x 1 for anxiety.
--- NOTE | 2020-10-05 07:00 | NUR ---
ASSUMED CARE OF PATIENT, BEDSIDE REPORT. PATIENT DENIES ANY NEEDS AT THIS TIME. CAREGIVER AT BEDSIDE. CALL LIGHT WITHIN REACH.
--- NOTE | 2020-10-05 11:00 | NUR ---
JAMAR AT BEDSIDE ASSISTING WITH CARE. PATIENT UP IN CHAIR. RECONNECTED NG TUBE TO SUCTION. PATIENT DENIES ANY PAIN. TOLERATING SOME MILK AND WATER.
--- NOTE | 2020-10-05 13:00 | NUR ---
FENTANYL PATCH PLACED. PATIENT DENIES ANY NAUSEA, REPORTS PAIN HAS IMRPOVED. TAKING BITES OF FOOD AND THEN SPITTING IT OUT. AZAEL AT BEDSIDE ASSISTING WITH CARE.
--- NOTE | 2020-10-05 14:29 | NUR ---
Spiritual care visit conducted. Patient is sitting on EOB and alert. PAtient tells me about her struggle with depression. We talk about thoughts that may be linked to that weightiness. I provide pastoral child welfare counselor and prayer. Several family members arrive until there was not enough room for everyone. I let the family have their time with patient. I will continue to remain available to patient and family
--- NOTE | 2020-10-05 14:51 | NUR ---
Met with patient today, along with her niece Olimpia who is at the bedside. She is lying on her R side, eyes closed, resp even and unlabored. She opens her eyes frequently, and is answering questions appropriately. NG in place, connected to intermittent low suction. Pt has also been placed on dexamethasone, and is taking 20mg every few hours today. Olimpia reports pt has continued to chew up food, but spit it out so she is able to enjoy the taste. She is also continuing to drink both mild and water, but they are being removed via NG tube. This ritual is bringing great satisfaction to the pt. She appears to be doing better all around in terms of pain control, nausea and anxiety. This is in large part due to medication changes, including starting roxanol, lorazepam and dexamethasone. Plan at this time is for pt to go home with [facility] if accepted. Requested Mildred Luther the liason find out if going home with NG tube with intermittent suction is a possibility, as pt and Medical floor RN are requesting this, as it is very helpful with nausea.
--- NOTE | 2020-10-05 17:35 | NUR ---
PATIENT STATES SHE "DOESN'T FEEL GOOD. DENIES PAIN OR NAUSEA REPORTS SHE THINKS SHE NEEDS TO HAVE A BOWEL MOVEMENT. ASSISTED PATIENT TO BSC.
--- NOTE | 2020-10-05 18:04 | NUR ---
PATIENT A/OX4 UP WITH 1 ASSIST TO CHAIR/BSC. NG TUBE TO LIS, CLAMPED FOR A FEW HOURS AFTER PO MEDS GIVEN. PATIENT TOLERATING LIQUIDS. DENIES ANY NAUSEA TODAY. FENTANYL PATCH IN PLACE AND PATIENT DENIED NEED FOR BREAKRHOUGH PAIN MEDICATION TODAY. SCOPALAMINE PATCH PLACED TO TREAT DISTENTION AND ABDOMINAL CRAMPING RECOMMENED BY THE PALLIATIVE CARE NURSE. PATIENT IS EAGER TO GET HOME. AZAEL AT BEDSIDE ASSISTING WITH CARE THROUGHOUT THE DAY.
--- NOTE | 2020-10-06 05:30 | NUR ---
SHIFT SUMMARY- PT. ON COMFORT CARE. NGT IN PLACE TO LOW INTERMITTENT SUCTION. PT. HAVING LARGE AMOUNT OF GREEN BILIOUS DRAINAGE T/O THE NIGHT. C/O PAIN AND ANXIETY/INSOMNIA LAST NIGHT. MEDICATED PER EMAR WITH GOOD EFFECT. PT. RESTED QUIETLY DURING THE NIGHT, NO APPARENT DISTRESS NOTED. CAREGIVER AT THE BEDSIDE ASSISTING W/CARE. CALL LIGHT WITHIN REACH AND SIDE RAILS UPX2. WILL CONT TO MONITOR.
--- NOTE | 2020-10-06 07:00 | NUR ---
ASSUMED CARE OF PATIENT. PATIENT SLEEPING AT THIS TIME. FAMILY AT BEDSIDE. NG TO LESLIE.
--- NOTE | 2020-10-06 09:00 | NUR ---
PATIENT DENIES ANY PAIN AT THIS TIME. FAMILY REQUESTING PATIENT TAKE HER LEXAPRO IN THE AM, WILL CHANGE. CLAMPED NG TUBE AND ORAL MEDS GIVEN. FAMILY REPOSITIONING AND ASSISTING WITH ADL'S AT HERE REQUEST.
--- NOTE | 2020-10-06 10:30 | NUR ---
PATIENT VOMITTED, BUT NOW REPORTS SHE IS FEELING BETTER. SUCTION CANISTER CHANGED AND SUCTION BACK ON. FAMILY CHANGED BEDDING AND DID A BED BATH. ASSISTING FAMILY NEEDED WITH CARE OF PATIENT. PATIENT DENIES NEED FOR NAUSEA MEDICATION AT THIS TIME.
--- NOTE | 2020-10-06 14:00 | NUR ---
PATIENT AND FAMILY DENY ANY NEEDS AT THIS TIME.
[2020-10-06] MEDS ORDERED: FENTANYL1 EAC7 TOP (14:34)
[2020-10-06] MEDS ORDERED: ATROPINE SULFATE2 M5 SL (14:36)
[2020-10-06] MEDS ORDERED: DEXA4 PO (14:40)
[2020-10-06] MEDS ORDERED: TRANSDERM-SCOP1 EAC1 TD (14:41)
--- NOTE | 2020-10-06 16:00 | NUR ---
[facility] DC INSTRUCTIONS AND EDUCATION DISCUSSED WITH [facility] AND HARD COPIES SCRIPTS GIVEN TO THEM BY HOSPICE DC BICYCLE REPAIRER. SPOKE WITH HOSPICE NURSE AND SUCTION TO BE DELIVERED TO PATIENTS HOME THIS EVENING. EDUCATD AZAEL ON ASPIRATING FROM NG AND HOW TO CARE FOR IT. PATIENT AND FAMILY DENY ANY FURTHER QUESTIONS OR CONCERNS.
--- NOTE | 2020-10-06 18:01 | NUR ---
Saw pt at noon today with Olimpia at bedside. Pt to go home with hospice today. She is alert, oriented and denies pain at this time. She has been sleeping more since getting pain under control. Her relative Olimpia will manage NG tube, by using 60cc syringe to aspirate stomach contents. 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 Pt feels ready to go home with hospice. Her anxiety is minimal. She has been comfortable and calm today, accepting of her terminal prognosis.
== END 2020-10-06 16:25 | disposition hospice, home (50) | DRG 327 ==
LOC: ER 03:33 → PCU 05:50 → ERHOLD 05:50 → MEDS 05:50 → PCU 08:59 → MEDS 16:49 → ENPENDDIS 10-06 11:51 → MEDS 10-06 16:25
PROVIDERS: Emergency Medicine; Internal Medicine; Internal Medicine Gastroenterology; Internal Medicine Nephrology; ADMIT Internal Medicine
PROC: 0W9G3ZZ Drainage of Peritoneal Cavity, Percutaneous Approach (ICD-10-PCS; 2020-09-27)
PROC: 0D968ZZ Drainage of Stomach, Via Natural or Artificial Opening Endoscopic (ICD-10-PCS; principal; 2020-10-03 09:00)
DX: C78.6 Secondary malignant neoplasm of retroperitoneum and peritoneum (principal); N17.9 Acute kidney failure, unspecified; E87.2 Acidosis; E87.1 Hypo-osmolality and hyponatremia; Z68.42 Body mass index [BMI] 45.0-49.9, adult; N25.81 Secondary hyperparathyroidism of renal origin; C78.00 Secondary malignant neoplasm of unspecified lung; C78.7 Secondary malignant neoplasm of liver and intrahepatic bile duct; C80.1 Malignant (primary) neoplasm, unspecified; Z95.5 Presence of coronary angioplasty implant and graft; Z79.4 Long term (current) use of insulin; Z79.82 Long term (current) use of aspirin; N18.30 Chronic kidney disease, stage 3 unspecified; I12.9 Hypertensive chronic kidney disease with stage 1 through stage 4 chronic kidney disease, or unspecified chronic kidney disease; E86.0 Dehydration; I95.9 Hypotension, unspecified; E11.22 Type 2 diabetes mellitus with diabetic chronic kidney disease; Z66 Do not resuscitate; E83.39 Other disorders of phosphorus metabolism; E11.649 Type 2 diabetes mellitus with hypoglycemia without coma; E88.09 Other disorders of plasma-protein metabolism, not elsewhere classified; D63.8 Anemia in other chronic diseases classified elsewhere; E66.01 Morbid (severe) obesity due to excess calories; I25.10 Atherosclerotic heart disease of native coronary artery without angina pectoris; Z51.5 Encounter for palliative care
CPT/HCPCS: 0241U; 36415; 36600; 49083; 51702; 71045; 74018; 74176; 76770; 80048; 80069; 80076; 81001; 82042; 82607; 82728; 82746; 82803; 82945; 82947; 83540; 83550; 83605; 83615; 83690; 83735; 84157; 84484; 85014; 85018; 85025; 87070; 87086; 87106; 87205; 88108; 88305; 88341; 88342; 89051; 93005; 93010; 93971; 96374; 96375; 99285-25; A9270; C1751; J0881; J1170; J1644; J1940; J2001; J2060; J2405; J2550; J2704; J2765; J3010; J7030; J7120; P9046